=== PATIENT | male | born 1985 | race Asian ===

== ENCOUNTER 2016-10-11 21:54 | Inpatient (IN) | payer SELFPAY ==
[2016-10-11 22:53] VITALS: BMI 24.7
[2016-10-11] MEDS ORDERED: METHADONE HCL 10 MG TABLET (FOR DETOX USE ONLY) PO ONE ×2 (23:00→23:23)
--- NOTE | 2016-10-11 23:07 | HP ---
COWS - Scale Resting Pulse: 0= [place] 80 or Below Sweatin= Chills/Flushing Restless Observation: 3= Extraneous Movement Pupil Size: 2= Moderately Dilated Bone or Joint Aches: 2= Severe Diffuse Aches Runny Nose/ Eye Tearin= Runny Nose/Eyes GI Upset > 30mins: 3= Vomiting/Diarrhea Tremor Observation: 2= Slight Tremor Visible Yawning Observation: 2= >3x During Session Anxiety or Irritability: 2=Irritable/Anxious Goose Flesh Skin: 0=Smooth Skin COWS Score: 19 CIWA Score - CIWA Score Nausea/Vomitin Muscle Tremors: 3 Anxiety: 3 Agitation: 3 Paroxysmal Sweats: 2 Orientation: 0-Oriented Tacttile Disturbances: 2-Mild Itch/Numbness/Burn Auditory Disturbances: 2-Mild Harshness/Frighten Visual Disturbances: 2-Mild Sensitivity Headache: 2-Mild CIWA-Ar Total Score: 22 Admission ROS BHS - HPI Chief Complaint: i need help to stop using heroin,cocaine and xanax Allergies/Adverse Reactions: Allergies Allergy/AdvReac Type Severity Reaction Status Date / Time No Known Drug Allergies Allergy Verified 10/11/16 22:53 History of Present Illness: this 31 years old male with heroin,cocaine and xanax dependence,withdrawal symptom,last detox 2013 not completed low back pain no significant period of sobriety - Ebola screening Have you traveled outside of the country in the last 21 days: No (N) Have you had contact with anyone from an Ebola affected area: No Have you been sick,other than usual withdrawal symptoms: No Do you have a fever: No - Review of Systems Constitutional: Chills, Diaphoresis, Loss of Appetite, Malaise, Night Sweats, Changes in sleep EENT: reports: Tearing, Nose Congestion Respiratory: reports: No Symptoms reported Cardiac: reports: No Symptoms Reported GI: reports: Diarrhea, Nausea, Poor Appetite, Vomiting : reports: No Symptoms Reported Musculoskeletal: reports: Back Pain, Joint Pain, Muscle Pain, Joint Stiffness Integumentary: reports: Dryness Neuro: reports: Headache, Tremors Endocrine: reports: No Symptoms Reported Hematology: reports: No Symptoms Reported Psychiatric: reports: No Sypmtoms Reported, Judgement Intact, Mood/Affect Appropiate, Orientated x3 Patient History - Patient Medical History Hx Anemia: No Hx Asthma: No Hx Chronic Obstructive Pulmonary Disease (COPD): No Hx Cancer: No Hx Cardiac Disorders: No Hx Congestive Heart Failure: No Hx Hypertension: No Hx Hypercholesterolemia: No Hx Pacemaker: No HX Cerebrovascular Accident: No Hx Seizures: No Hx Dementia: No Hx Diabetes: No Hx Gastrointestinal Disorders: No Hx Liver Disease: No Hx Genitourinary Disorders: No Hx Sexually Transmitted Disorders: No Hx Renal Disease (ESRD): No Hx Thyroid Disease: No Hx Human Immunodeficiency Virus (HIV): No (last 2015) Hx Hepatitis C: No Hx Depression: No Hx Suicide Attempt: No Hx Bipolar Disorder: No Hx Schizophrenia: No Other Medical History: no suicidal,no homicidal - Patient Surgical History Past Surgical History: No Hx Neurologic Surgery: No Hx Cataract Extraction: No Hx Cardiac Surgery: No Hx Lung Surgery: No Hx Breast Surgery: No Hx Breast Biopsy: No Hx Abdominal Surgery: No Hx Appendectomy: No Hx Cholecystectomy: No Hx Genitourinary Surgery: No Hx Orthopedic Surgery: No Anesthesia Reaction: No - PPD History Previous Implant?: Yes Documented Results: Negative w/o proof Implanted On Prior [facility] Admission?: Yes Date: 04/10/13 PPD to be Administered?: Yes - Smoking Cessation Smoking history: Never smoked Have you smoked in the past 12 months: No Hx Chewing Tobacco Use: No - Substance & Tx. History Hx Alcohol Use: No Hx Substance Use: Yes Substance Use Type: Cocaine, Heroin, Tranquilizers Hx Substance Use Treatment: Yes ([facility] [id number]) - Substances Abused Heroin Route: Inhalation Frequency: Daily Amount used: 25 bags Age of first use: 31 Date of Last Use: 10/11/16 Cocaine Route: Inhalation Frequency: 3-6 times per week Amount used: 80$ Age of first use: 25 Date of Last Use: 10/11/16 Alprazolam (Xanax) Route: Oral Frequency: 1-2 times per week Amount used: 4 to 6 mgs Age of first use: 25 Date of Last Use: 10/08/16 Family Disease History - Family Disease History Family Disease History: CA: Mother (METASTATIC OF UNKNOWN ORIGIN) Admission Physical Exam BHS - Vital Signs Vital Signs: Vital Signs - 24 hr 10/11/16 22:51 Temperature 97.1 F L Pulse Rate 71 Respiratory 20 Rate Blood Pressure 145/80 - Physical General Appearance: Yes: Moderate Distress, Tremorous, Irritable, Sweating, Anxious HEENTM: Yes: Hearing grossly Normal, Normal ENT Inspection, BUDDY, Pharynx Normal Respiratory: Yes: Lungs Clear, Normal Breath Sounds, No Respiratory Distress Neck: Yes: Within Normal Limits, Supple, Trachea in good position Breast: Yes: Within Normal Limits Cardiology: Yes: Within Normal Limits, Regular Rhythm, Regular Rate, S1, S2 Abdominal: Yes: Within Normal Limits, Normal Bowel Sounds, Non Tender, Flat, Soft Genitourinary: Yes: Within Normal Limits Back: Yes: Muscle Spasm Musculoskeletal: Yes: full range of Motion, Back pain, Muscle Pain Extremities: Yes: Tremors Neurological: Yes: early childhood teacher II-XII NML intact, Fully Oriented, Alert, Motor Strength 5/5 Integumentary: Yes: Dry Lymphatic: Yes: Within Normal Limits - Diagnostic (1) Opioid dependence with withdrawal Current Visit: Yes Status: Acute (2) Cocaine dependence Current Visit: Yes Status: Acute (3) Uncomplicated sedative, hypnotic or anxiolytic withdrawal Current Visit: Yes Status: Acute (4) Low back pain Current Visit: Yes Status: Acute Cleared for Admission [facility] - Detox or Rehab [facility] Level of Care: Medically Managed Detox Regimen/Protocol: Methadone [facility] Breath Alcohol Content Breath Alcohol Content: 0 Urine Drug Screen - Results Drug Screen Negative: No Urine Drug Screen Results: MAITE-Cocaine, OPI-Opiates
[2016-10-11] MEDS ORDERED: MENTHOL/PHENOL 1 EACH UD MM PRN (23:18)
[2016-10-11] MEDS ORDERED: guaiFENesin/D-METHORPHAN HB 10 ML UNIT-DOSE CUPS PO PRN (23:18)
[2016-10-11] MEDS ORDERED: MAG HYDROX/AL HYDROX/SIMETH 30 ML UNIT-DOSE CUP PO PRN (23:18)
[2016-10-11] MEDS ORDERED: P-EPHED 60MG/TRIPROLIDI 2.5MG TABLET PO PRN (23:18)
[2016-10-11] MEDS ORDERED: MAGNESIUM CITRATE 300 ML BOTTLE PO PRN (23:18)
[2016-10-11] MEDS ORDERED: LOPERAMIDE HCL 2 MG CAPSULE PO PRN (23:18)
[2016-10-11] MEDS ORDERED: MAGNESIUM HYDROX 2400MG/30ML ORAL SUSPENSION 30 ML CUP PO PRN (23:18)
[2016-10-11] MEDS: diazePAM 5 MG TABLET PO PRN (23:44)
[2016-10-12] MEDS: diazePAM 5 MG TABLET PO PRN ×4 (05:56→20:49)
[2016-10-12] MEDS: cloNIDine HCL 0.1 MG TABLET PO SCH ×2 (10:00→22:51)
[2016-10-12] MEDS ORDERED: METHADONE HCL 10 MG TABLET (FOR DETOX USE ONLY) PO ONE (10:00)
[2016-10-12] MEDS: PRENATAL VITAMINS W/ FOLIC ACID TABLET (FP) PO SCH (10:00)
--- NOTE | 2016-10-12 10:06 | EKG ---
Test Reason : Blood Pressure : / mmHG Vent. Rate : 059 BPM Atrial Rate : 059 BPM P-R Int : 176 ms QRS Dur : 094 ms QT Int : 464 ms P-R-T Axes : 064 079 050 degrees QTc Int : 459 ms SINUS BRADYCARDIA WITH SINUS ARRHYTHMIA NO PREVIOUS ECGS AVAILABLE Confirmed by EMY DONAHUE MD ([id number]) on 10/12/2016 10:05:55 AM Referred By: Confirmed By:EMY DONAHUE MD
[2016-10-12 10:25] LABS: MCH 30.7 pg (25.7-33.7); MCHC 34.4 g/dl (32.0-35.9); MEAN CELL VOLUME 89.1 fl (80-96); MEAN PLT VOLUME 8.1 fl (7.5-11.1); PLATELET COUNT 205 K/MM3 (134-434); RDW 13.4 % (11.9-15.9); WHITE BLOOD COUNT 5.4 K/mm3 (4.0-10.0)
[2016-10-12 11:15] LABS: ALBUMIN 3.3 g/dl (3.4-5.0); ALK PHOS 51 U/L (45-117); ANION GAP 7 (8-16); BILIRUBIN,TOTAL 0.2 mg/dL (0.2-1.0); CALCIUM 8.4 mg/dL (8.5-10.1); CO2 28 mmol/L (21-32); COCKROFT - GAULT 161.37; CREATININE 0.8 mg/dL (0.7-1.3); GLUCOSE,RANDOM 80 mg/dL (74-106); SGOT/AST 20 U/L (15-37); SGPT/ALT 26 U/L (12-78); TOT PROT 6.4 g/dl (6.4-8.2)
--- NOTE | 2016-10-12 13:59 | PN ---
S COWS - Scale Resting Pulse: 0= [place] 80 or Below Sweatin=Flushed/Facial Moisture Restless Observation: 1= Difficult to Sit Still Pupil Size: 0= Normal to Room Light Bone or Joint Aches: 2= Severe Diffuse Aches Runny Nose/ Eye Tearin= Nasal Congestion GI Upset > 30mins: 2= Nausea/Diarrhea Tremor Observation of Outstretched Hands: 2= Slight Tremor Visible Yawning Observation: 0= None Anxiety or Irritability: 2=Irritable/Anxious Goose Flesh Skin: 3=Piloerection COWS Score: 15 [facility] Progress Note (SOAP) Subjective: restlessness, tremors, sweats, pain and abdominal cramping Objective: 10/12/16 13:58 Vital Signs - 8 hr 10/12/16 10/12/16 06:47 09:59 Temperature 96.5 F L 98.5 F Pulse Rate 50 L 72 Respiratory 16 18 Rate Blood Pressure 122/77 149/84 Laboratory Last Values WBC 5.4 K/mm3 (4.0-10.0) D 10/12/16 07:50 RBC 4.28 M/mm3 (4.00-5.60) 10/12/16 07:50 Hgb 13.1 GM/dL (11.7-16.9) 10/12/16 07:50 Hct 38.1 % (35.4-49) 10/12/16 07:50 MCV 89.1 fl (80-96) 10/12/16 07:50 MCHC 34.4 g/dl (32.0-35.9) 10/12/16 07:50 RDW 13.4 % (11.9-15.9) 10/12/16 07:50 Plt Count 205 K/MM3 (134-434) 10/12/16 07:50 MPV 8.1 fl (7.5-11.1) 10/12/16 07:50 Sodium 140 mmol/L (136-145) 10/12/16 07:50 Potassium 4.1 mmol/L (3.5-5.1) 10/12/16 07:50 Chloride 105 mmol/L (98-107) 10/12/16 07:50 Carbon Dioxide 28 mmol/L (21-32) 10/12/16 07:50 Anion Gap 7 (8-16) L 10/12/16 07:50 BUN 22 mg/dL (7-18) H D 10/12/16 07:50 Creatinine 0.8 mg/dL (0.7-1.3) 10/12/16 07:50 Creat Clearance w eGFR > 60 (>60) 10/12/16 07:50 Random Glucose 80 mg/dL (74-106) 10/12/16 07:50 Calcium 8.4 mg/dL (8.5-10.1) L 10/12/16 07:50 Total Bilirubin 0.2 mg/dL (0.2-1.0) D 10/12/16 07:50 AST 20 U/L (15-37) D 10/12/16 07:50 ALT 26 U/L (12-78) D 10/12/16 07:50 Alkaline Phosphatase 51 U/L (45-117) D 10/12/16 07:50 Total Protein 6.4 g/dl (6.4-8.2) 10/12/16 07:50 Albumin 3.3 g/dl (3.4-5.0) L 10/12/16 07:50 RPR Titer Nonreactive (NONREACTIVE) 10/12/16 07:50 labs noted Assessment: 10/12/16 13:58 withdrawal sx Plan: continue detox
[2016-10-12] MEDS: IBUPROFEN 400 MG TABLET (FP) PO PRN (16:42)
[2016-10-12 19:17] LABS: URINE APPEARANCE SLCLOUDY; URINE BILIRUBIN NEGATIVE (NEGATIVE); URINE BLOOD NEGATIVE (NEGATIVE); URINE COLOR YELLOW; URINE GLUCOSE (UA) NEGATIVE (NEGATIVE); URINE KETONE NEGATIVE (NEGATIVE); URINE LEUK ESTERASE NEGATIVE (NEGATIVE); URINE NITRITE NEGATIVE (NEGATIVE); URINE PROTEIN NEGATIVE (NEGATIVE); URINE UROBILINOGEN NEGATIVE E.U./dl (0.2-1.0)
[2016-10-12] MEDS: CYCLOBENZAPRINE HCL 10 MG TABLET (FP) PO PRN (20:49)
[2016-10-12] MEDS: THIAMINE HCL 100 MG TABLET (FP) PO SCH (22:51)
[2016-10-12] MEDS: diphenhydrAMINE HCL 50 MG CAPSULE PO PRN (22:53)
[2016-10-13] MEDS: IBUPROFEN 400 MG TABLET (FP) PO PRN ×2 (05:51→20:28)
[2016-10-13] MEDS: diazePAM 5 MG TABLET PO PRN ×4 (05:51→22:37)
[2016-10-13] MEDS ORDERED: METHADONE HCL 5 MG TABLET (FOR DETOX USE ONLY) PO ONE (10:00)
[2016-10-13] MEDS: cloNIDine HCL 0.1 MG TABLET PO SCH ×2 (10:50→22:35)
[2016-10-13] MEDS: PRENATAL VITAMINS W/ FOLIC ACID TABLET (FP) PO SCH (10:50)
[2016-10-13] MEDS: ACETAMINOPHEN 325 MG TABLET (FP) PO PRN ×2 (10:52→18:11)
[2016-10-13] MEDS: CYCLOBENZAPRINE HCL 10 MG TABLET (FP) PO PRN ×2 (11:13→18:11)
--- NOTE | 2016-10-13 16:05 | PN ---
BHS COWS - Scale Resting Pulse: 1= [place] 81-100 Sweatin= Chills/Flushing Restless Observation: 3= Extraneous Movement Pupil Size: 0= Normal to Room Light Bone or Joint Aches: 2= Severe Diffuse Aches Runny Nose/ Eye Tearin= Runny Nose/Eyes GI Upset > 30mins: 1= Stomach Cramp Tremor Observation of Outstretched Hands: 0= None Yawning Observation: 1= 1-2x During Session Anxiety or Irritability: 2=Irritable/Anxious Goose Flesh Skin: 0=Smooth Skin COWS Score: 13 BHS Progress Note (SOAP) Subjective: Back pain (wants lidocaine patch, flexeril not adequate), sweats, anxious, c/o constipation (no bm x 3 days) Objective: 10/13/16 16:04 Last Vital Signs Temp Pulse Resp BP Pulse Ox 96.9 F L 85 18 132/84 10/13/16 09:14 10/13/16 09:14 10/13/16 09:14 10/13/16 09:14 Laboratory Tests 10/12/16 10/12/16 10/12/16 07:50 07:50 07:50 WBC 5.4 D RBC 4.28 Hgb 13.1 Hct 38.1 MCV 89.1 MCHC 34.4 RDW 13.4 Plt Count 205 MPV 8.1 Sodium 140 Potassium 4.1 Chloride 105 Carbon Dioxide 28 Anion Gap 7 L BUN 22 H D Creatinine 0.8 Creat Clearance w eGFR > 60 Random Glucose 80 Calcium 8.4 L Total Bilirubin 0.2 D AST 20 D ALT 26 D Alkaline Phosphatase 51 D Total Protein 6.4 Albumin 3.3 L Urine Color Urine Appearance Urine pH Ur Specific [place] Urine Protein Urine Glucose (UA) Urine Ketones Urine Blood Urine Nitrite Urine Bilirubin Urine Urobilinogen Ur Leukocyte Esterase RPR Titer Nonreactive 10/12/16 11:18 WBC RBC Hgb Hct MCV MCHC RDW Plt Count MPV Sodium Potassium Chloride Carbon Dioxide Anion Gap BUN Creatinine Creat Clearance w eGFR Random Glucose Calcium Total Bilirubin AST ALT Alkaline Phosphatase Total Protein Albumin Urine Color Yellow Urine Appearance Slcloudy Urine pH 5.0 D Ur Specific [place] 1.023 Urine Protein Negative Urine Glucose (UA) Negative Urine Ketones Negative Urine Blood Negative Urine Nitrite Negative Urine Bilirubin Negative Urine Urobilinogen Negative Ur Leukocyte Esterase Negative RPR Titer Labs noted Assessment: 10/13/16 16:04 Withdrawal symptoms c/o constipation Plan: Continue detox, lidocaine patch for back pain Acute constipation: dulcolax 10mg PO x 1 dose, encouraged to drink lots of water
[2016-10-13] MEDS ORDERED: BISACODYL 5 MG TABLET.DR (FP) PO ONE (16:07)
[2016-10-13] MEDS: hydrOXYzine PAMOATE 50 MG CAPSULE (FP) PO PRN (20:29)
[2016-10-13] MEDS: THIAMINE HCL 100 MG TABLET (FP) PO SCH (22:35)
[2016-10-13] MEDS: diphenhydrAMINE HCL 50 MG CAPSULE PO PRN (22:36)
[2016-10-14] MEDS: CYCLOBENZAPRINE HCL 10 MG TABLET (FP) PO PRN (04:00)
[2016-10-14] MEDS: diazePAM 5 MG TABLET PO PRN ×4 (04:00→19:41)
[2016-10-14] MEDS ORDERED: METHADONE HCL 5 MG TABLET (FOR DETOX USE ONLY) PO ONE (10:00)
[2016-10-14] MEDS: PRENATAL VITAMINS W/ FOLIC ACID TABLET (FP) PO SCH (10:41)
[2016-10-14] MEDS: LIDOCAINE 5% TOPICAL PATCH TP SCH (10:42)
[2016-10-14] MEDS: cloNIDine HCL 0.1 MG TABLET PO SCH ×2 (10:42→22:30)
--- NOTE | 2016-10-14 12:10 | PN ---
BHS Progress Note (SOAP) Subjective: Sweating,interrupted sleep,restless. Objective: 10/14/16 12:09 Vital Signs - 8 hr 10/14/16 10/14/16 06:18 09:50 Temperature 96.4 F L 95.7 F L Pulse Rate 78 81 Respiratory 18 18 Rate Blood Pressure 140/73 137/84 Laboratory Last Values WBC 5.4 K/mm3 (4.0-10.0) D 10/12/16 07:50 RBC 4.28 M/mm3 (4.00-5.60) 10/12/16 07:50 Hgb 13.1 GM/dL (11.7-16.9) 10/12/16 07:50 Hct 38.1 % (35.4-49) 10/12/16 07:50 MCV 89.1 fl (80-96) 10/12/16 07:50 MCHC 34.4 g/dl (32.0-35.9) 10/12/16 07:50 RDW 13.4 % (11.9-15.9) 10/12/16 07:50 Plt Count 205 K/MM3 (134-434) 10/12/16 07:50 MPV 8.1 fl (7.5-11.1) 10/12/16 07:50 Sodium 140 mmol/L (136-145) 10/12/16 07:50 Potassium 4.1 mmol/L (3.5-5.1) 10/12/16 07:50 Chloride 105 mmol/L (98-107) 10/12/16 07:50 Carbon Dioxide 28 mmol/L (21-32) 10/12/16 07:50 Anion Gap 7 (8-16) L 10/12/16 07:50 BUN 22 mg/dL (7-18) H D 10/12/16 07:50 Creatinine 0.8 mg/dL (0.7-1.3) 10/12/16 07:50 Creat Clearance w eGFR > 60 (>60) 10/12/16 07:50 Random Glucose 80 mg/dL (74-106) 10/12/16 07:50 Calcium 8.4 mg/dL (8.5-10.1) L 10/12/16 07:50 Total Bilirubin 0.2 mg/dL (0.2-1.0) D 10/12/16 07:50 AST 20 U/L (15-37) D 10/12/16 07:50 ALT 26 U/L (12-78) D 10/12/16 07:50 Alkaline Phosphatase 51 U/L (45-117) D 10/12/16 07:50 Total Protein 6.4 g/dl (6.4-8.2) 10/12/16 07:50 Albumin 3.3 g/dl (3.4-5.0) L 10/12/16 07:50 Urine Color Yellow 10/12/16 11:18 Urine Appearance Slcloudy 10/12/16 11:18 Urine pH 5.0 (5.0-8.0) D 10/12/16 11:18 Ur Specific [place] 1.023 (1.001-1.035) 10/12/16 11:18 Urine Protein Negative (NEGATIVE) 10/12/16 11:18 Urine Glucose (UA) Negative (NEGATIVE) 10/12/16 11:18 Urine Ketones Negative (NEGATIVE) 10/12/16 11:18 Urine Blood Negative (NEGATIVE) 10/12/16 11:18 Urine Nitrite Negative (NEGATIVE) 10/12/16 11:18 Urine Bilirubin Negative (NEGATIVE) 10/12/16 11:18 Urine Urobilinogen Negative E.U./dl (0.2-1.0) 10/12/16 11:18 Ur Leukocyte Esterase Negative (NEGATIVE) 10/12/16 11:18 RPR Titer Nonreactive (NONREACTIVE) 10/12/16 07:50 labs noted Assessment: 10/14/16 12:10 Withdrawal sx. Plan: Continue detox
[2016-10-14] MEDS: ONDANSETRON *ODT* 4 MG TABLET SL PRN (13:01)
[2016-10-14] MEDS: TRIMETHOBENZAMIDE HCL 200MG/2ML INJ IM PRN ×2 (13:52→20:23)
[2016-10-14] MEDS: ACETAMINOPHEN 325 MG TABLET (FP) PO PRN ×2 (15:25→21:30)
[2016-10-14] MEDS: IBUPROFEN 400 MG TABLET (FP) PO PRN (17:16)
[2016-10-14] MEDS: hydrOXYzine PAMOATE 50 MG CAPSULE (FP) PO PRN (17:16)
[2016-10-14] MEDS: THIAMINE HCL 100 MG TABLET (FP) PO SCH (22:30)
[2016-10-14] MEDS: diphenhydrAMINE HCL 50 MG CAPSULE PO PRN (22:30)
[2016-10-15] MEDS: TRIMETHOBENZAMIDE HCL 200MG/2ML INJ IM PRN (03:59)
[2016-10-15] MEDS: IBUPROFEN 400 MG TABLET (FP) PO PRN (06:09)
[2016-10-15] MEDS: CYCLOBENZAPRINE HCL 10 MG TABLET (FP) PO PRN ×2 (06:09→21:45)
[2016-10-15] MEDS: hydrOXYzine PAMOATE 50 MG CAPSULE (FP) PO PRN ×3 (06:09→21:47)
[2016-10-15] MEDS: cloNIDine HCL 0.1 MG TABLET PO SCH ×3 (06:27→21:45)
--- NOTE | 2016-10-15 09:46 | PN ---
BHS Progress Note (SOAP) Subjective: Sweating,interrupted sleep,restless Objective: 10/15/16 09:45 Vital Signs - 8 hr 10/15/16 10/15/16 06:22 09:23 Temperature 98.9 F Pulse Rate 94 H 84 Respiratory 18 20 Rate Blood Pressure 163/107 118/68 Laboratory Last Values WBC 5.4 K/mm3 (4.0-10.0) D 10/12/16 07:50 RBC 4.28 M/mm3 (4.00-5.60) 10/12/16 07:50 Hgb 13.1 GM/dL (11.7-16.9) 10/12/16 07:50 Hct 38.1 % (35.4-49) 10/12/16 07:50 MCV 89.1 fl (80-96) 10/12/16 07:50 MCHC 34.4 g/dl (32.0-35.9) 10/12/16 07:50 RDW 13.4 % (11.9-15.9) 10/12/16 07:50 Plt Count 205 K/MM3 (134-434) 10/12/16 07:50 MPV 8.1 fl (7.5-11.1) 10/12/16 07:50 Sodium 140 mmol/L (136-145) 10/12/16 07:50 Potassium 4.1 mmol/L (3.5-5.1) 10/12/16 07:50 Chloride 105 mmol/L (98-107) 10/12/16 07:50 Carbon Dioxide 28 mmol/L (21-32) 10/12/16 07:50 Anion Gap 7 (8-16) L 10/12/16 07:50 BUN 22 mg/dL (7-18) H D 10/12/16 07:50 Creatinine 0.8 mg/dL (0.7-1.3) 10/12/16 07:50 Creat Clearance w eGFR > 60 (>60) 10/12/16 07:50 Random Glucose 80 mg/dL (74-106) 10/12/16 07:50 Calcium 8.4 mg/dL (8.5-10.1) L 10/12/16 07:50 Total Bilirubin 0.2 mg/dL (0.2-1.0) D 10/12/16 07:50 AST 20 U/L (15-37) D 10/12/16 07:50 ALT 26 U/L (12-78) D 10/12/16 07:50 Alkaline Phosphatase 51 U/L (45-117) D 10/12/16 07:50 Total Protein 6.4 g/dl (6.4-8.2) 10/12/16 07:50 Albumin 3.3 g/dl (3.4-5.0) L 10/12/16 07:50 Urine Color Yellow 10/12/16 11:18 Urine Appearance Slcloudy 10/12/16 11:18 Urine pH 5.0 (5.0-8.0) D 10/12/16 11:18 Ur Specific [place] 1.023 (1.001-1.035) 10/12/16 11:18 Urine Protein Negative (NEGATIVE) 10/12/16 11:18 Urine Glucose (UA) Negative (NEGATIVE) 10/12/16 11:18 Urine Ketones Negative (NEGATIVE) 10/12/16 11:18 Urine Blood Negative (NEGATIVE) 10/12/16 11:18 Urine Nitrite Negative (NEGATIVE) 10/12/16 11:18 Urine Bilirubin Negative (NEGATIVE) 10/12/16 11:18 Urine Urobilinogen Negative E.U./dl (0.2-1.0) 10/12/16 11:18 Ur Leukocyte Esterase Negative (NEGATIVE) 10/12/16 11:18 RPR Titer Nonreactive (NONREACTIVE) 10/12/16 07:50 labs noted Assessment: 10/15/16 09:46 Withdrawal sx Plan: Continue detox
[2016-10-15] MEDS ORDERED: METHADONE HCL 10 MG TABLET (FOR DETOX USE ONLY) PO ONE (10:00)
[2016-10-15] MEDS: ONDANSETRON *ODT* 4 MG TABLET SL PRN (11:59)
[2016-10-15] MEDS: PRENATAL VITAMINS W/ FOLIC ACID TABLET (FP) PO SCH (12:12)
[2016-10-15] MEDS: LIDOCAINE 5% TOPICAL PATCH TP SCH (12:12)
[2016-10-15] MEDS: THIAMINE HCL 100 MG TABLET (FP) PO SCH (21:44)
[2016-10-15] MEDS: diphenhydrAMINE HCL 50 MG CAPSULE PO PRN (22:36)
[2016-10-16] MEDS: CYCLOBENZAPRINE HCL 10 MG TABLET (FP) PO PRN (05:57)
[2016-10-16] MEDS: hydrOXYzine PAMOATE 50 MG CAPSULE (FP) PO PRN (05:59)
[2016-10-16] MEDS ORDERED: METHADONE HCL 5 MG TABLET (FOR DETOX USE ONLY) PO ONE (06:00)
[2016-10-16] MEDS: LIDOCAINE 5% TOPICAL PATCH TP SCH (09:27)
[2016-10-16] MEDS: PRENATAL VITAMINS W/ FOLIC ACID TABLET (FP) PO SCH (09:27)
[2016-10-16] MEDS: cloNIDine HCL 0.1 MG TABLET PO SCH (09:27)
[2016-10-16 09:48] VITALS: BP 118/75; PULSE 103; TEMP 95.4
--- NOTE | 2016-10-16 13:03 | DS ---
[facility] Detox Discharge Summary Admission Date: 10/11/16 Discharge Date: 10/16/16 - History Present History: Cocaine Dependence, Opioid Dependence, Sedative Dependence Additional Comments: ADVISED PATIENT TO FOLLOW-UP WITH [facility] DR[facility] AFTER DISCHARGE FROM DETOX FOR GENERAL MEDICAL ASSESSMENT AND FOR ABNORMAL ADMISSION LAB VALUES. - Physical Exam Results Vital Signs: Vital Signs Temperature 95.4 F L 10/16/16 09:48 Pulse Rate 103 H 10/16/16 09:48 Respiratory Rate 15 10/16/16 09:48 Blood Pressure 118/75 10/16/16 09:48 O2 Sat by Pulse Oximetry (%) Pertinent Admission Physical Exam Findings: WITHDRAWAL SYMPTOMS. Laboratory Last Values WBC 5.4 K/mm3 (4.0-10.0) D 10/12/16 07:50 RBC 4.28 M/mm3 (4.00-5.60) 10/12/16 07:50 Hgb 13.1 GM/dL (11.7-16.9) 10/12/16 07:50 Hct 38.1 % (35.4-49) 10/12/16 07:50 MCV 89.1 fl (80-96) 10/12/16 07:50 MCHC 34.4 g/dl (32.0-35.9) 10/12/16 07:50 RDW 13.4 % (11.9-15.9) 10/12/16 07:50 Plt Count 205 K/MM3 (134-434) 10/12/16 07:50 MPV 8.1 fl (7.5-11.1) 10/12/16 07:50 Sodium 140 mmol/L (136-145) 10/12/16 07:50 Potassium 4.1 mmol/L (3.5-5.1) 10/12/16 07:50 Chloride 105 mmol/L (98-107) 10/12/16 07:50 Carbon Dioxide 28 mmol/L (21-32) 10/12/16 07:50 Anion Gap 7 (8-16) L 10/12/16 07:50 BUN 22 mg/dL (7-18) H D 10/12/16 07:50 Creatinine 0.8 mg/dL (0.7-1.3) 10/12/16 07:50 Creat Clearance w eGFR > 60 (>60) 10/12/16 07:50 Random Glucose 80 mg/dL (74-106) 10/12/16 07:50 Calcium 8.4 mg/dL (8.5-10.1) L 10/12/16 07:50 Total Bilirubin 0.2 mg/dL (0.2-1.0) D 10/12/16 07:50 AST 20 U/L (15-37) D 10/12/16 07:50 ALT 26 U/L (12-78) D 10/12/16 07:50 Alkaline Phosphatase 51 U/L (45-117) D 10/12/16 07:50 Total Protein 6.4 g/dl (6.4-8.2) 10/12/16 07:50 Albumin 3.3 g/dl (3.4-5.0) L 10/12/16 07:50 Urine Color Yellow 10/12/16 11:18 Urine Appearance Slcloudy 10/12/16 11:18 Urine pH 5.0 (5.0-8.0) D 10/12/16 11:18 Ur Specific [place] 1.023 (1.001-1.035) 10/12/16 11:18 Urine Protein Negative (NEGATIVE) 10/12/16 11:18 Urine Glucose (UA) Negative (NEGATIVE) 10/12/16 11:18 Urine Ketones Negative (NEGATIVE) 10/12/16 11:18 Urine Blood Negative (NEGATIVE) 10/12/16 11:18 Urine Nitrite Negative (NEGATIVE) 10/12/16 11:18 Urine Bilirubin Negative (NEGATIVE) 10/12/16 11:18 Urine Urobilinogen Negative E.U./dl (0.2-1.0) 10/12/16 11:18 Ur Leukocyte Esterase Negative (NEGATIVE) 10/12/16 11:18 RPR Titer Nonreactive (NONREACTIVE) 10/12/16 07:50 LABS NOTED. - Treatment Hospital Course: Detox Protocol Followed, Detoxed Safely, Responded well, Discharged Condition Good Patient has Accepted a Rehab Referral to: NO - PATIENT ELECTING TO PURSUE OUTPATIENT SUBOXONE TREATMENT. - Medication Discharge Medications: Ambulatory Orders NK [No Known Home Medication] 10/11/16 - Diagnosis (1) Low back pain Current Visit: Yes Status: Acute (2) Opioid dependence with withdrawal Current Visit: Yes Status: Acute (3) Uncomplicated sedative, hypnotic or anxiolytic withdrawal Current Visit: Yes Status: Acute (4) Cocaine dependence, uncomplicated Current Visit: Yes Status: Acute - AMA Did Patient Leave Against Medical Advice: No
== END 2016-10-16 09:35 | disposition home or self-care (01) | DRG 773 ==
LOC: YASAS 21:54 → Y3N 22:57
PROVIDERS: ADMIT Internal Medicine; ATTEND Internal Medicine
PROC: HZ2ZZZZ Detoxification Services for Substance Abuse Treatment (ICD-10-PCS; principal; 2016-10-11)
DX: F11.23 Opioid dependence with withdrawal (principal); F13.230 Sedative, hypnotic or anxiolytic dependence with withdrawal, uncomplicated; F14.20 Cocaine dependence, uncomplicated; M54.5 Low back pain; K59.00 Constipation, unspecified
CPT/HCPCS: 36415; 80053; 81003; 85027; 86593; 93005; 93010

== ENCOUNTER 2017-03-02 17:58 | Inpatient (IN) | payer OTHER ==
[2017-03-02 18:25] VITALS: BMI 24.4
--- NOTE | 2017-03-02 18:57 | HP ---
COWS - Scale Resting Pulse: 2= [place] 101-120 Sweatin=Flushed/Facial Moisture Restless Observation: 1= Difficult to Sit Still Pupil Size: 2= Moderately Dilated Bone or Joint Aches: 2= Severe Diffuse Aches Runny Nose/ Eye Tearin= Runny Nose/Eyes GI Upset > 30mins: 2= Nausea/Diarrhea Tremor Observation: 2= Slight Tremor Visible Yawning Observation: 1= 1-2x During Session Anxiety or Irritability: 2=Irritable/Anxious Goose Flesh Skin: 0=Smooth Skin COWS Score: 18 CIWA Score - CIWA Score Nausea/Vomitin Muscle Tremors: 4-Moderate,w/Arms Extend Anxiety: 4-Mod. Anxious/Guarded Agitation: 4-Moderately Restless Paroxysmal Sweats: 3 Orientation: 2-Disoriented Date<2 days Tacttile Disturbances: 0-None Auditory Disturbances: 0-None Visual Disturbances: 0-None Headache: 0-None Present CIWA-Ar Total Score: 19 Admission ROS BHS - HPI Chief Complaint: Withdrawal sx Allergies/Adverse Reactions: Allergies Allergy/AdvReac Type Severity Reaction Status Date / Time No Known Drug Allergies Allergy Verified 10/11/16 22:53 History of Present Illness: 31 y/o man with a long hx. of heroin & alcohol dependence is admitted for detox.Pt. has been in previous detox,denies being drug free. Exam Limitations: No Limitations - Ebola screening Have you traveled outside of the country in the last 21 days: No Have you had contact with anyone from an Ebola affected area: No Have you been sick,other than usual withdrawal symptoms: No Do you have a fever: No - Review of Systems Constitutional: Diaphoresis EENT: reports: No Symptoms Reported Respiratory: reports: No Symptoms reported Cardiac: reports: No Symptoms Reported GI: reports: Nausea, Abdominal cramping : reports: No Symptoms Reported Musculoskeletal: reports: Joint Pain Integumentary: reports: Sweating Neuro: reports: Tremors Endocrine: reports: No Symptoms Reported Hematology: reports: No Symptoms Reported Psychiatric: reports: No Sypmtoms Reported Other Systems: Reviewed and Negative Patient History - Patient Medical History Hx Anemia: No Hx Asthma: No Hx Chronic Obstructive Pulmonary Disease (COPD): No Hx Cancer: No Hx Cardiac Disorders: No Hx Congestive Heart Failure: No Hx Hypertension: No Hx Hypercholesterolemia: No Hx Pacemaker: No HX Cerebrovascular Accident: No Hx Seizures: No Hx Dementia: No Hx Diabetes: No Hx Gastrointestinal Disorders: No Hx Liver Disease: No Hx Genitourinary Disorders: No Hx Sexually Transmitted Disorders: No Hx Renal Disease (ESRD): No Hx Thyroid Disease: No Hx Human Immunodeficiency Virus (HIV): No Hx Hepatitis C: No Hx Depression: No Hx Suicide Attempt: No Hx Bipolar Disorder: No Hx Schizophrenia: No - Patient Surgical History Past Surgical History: No Hx Neurologic Surgery: No Hx Cataract Extraction: No Hx Cardiac Surgery: No Hx Lung Surgery: No Hx Breast Surgery: No Hx Breast Biopsy: No Hx Abdominal Surgery: No Hx Appendectomy: No Hx Cholecystectomy: No Hx Genitourinary Surgery: No Hx Section: No Hx Orthopedic Surgery: No Anesthesia Reaction: No - PPD History Previous Implant?: Yes Documented Results: Negative w/proof Date: 10/13/16 Results: 0 mm PPD to be Administered?: No - Smoking Cessation Smoking history: Current every day smoker Have you smoked in the past 12 months: Yes Aproximately how many cigarettes per day: 2 Hx Chewing Tobacco Use: No Initiated information on smoking cessation: Yes 'Breaking Loose' booklet given: 03/02/17 - Substance & Tx. History Hx Alcohol Use: Yes Hx Substance Use: Yes Substance Use Type: Alcohol, Cocaine, Heroin, Tranquilizers Hx Substance Use Treatment: Yes (Detox, IOP) - Substances Abused Alcohol Route: Oral Frequency: Daily Amount used: Beer 1(6 pack), Rum 1/2 pint Age of first use: 15 Date of Last Use: 03/01/17 Alprazolam (Xanax) Route: Oral Frequency: Daily Amount used: 4mg Age of first use: 15 Date of Last Use: 03/01/17 Heroin Route: Inhalation Frequency: Daily Amount used: 10 bags Age of first use: 30 Date of Last Use: 03/02/17 Cocaine Route: Inhalation Frequency: Daily Amount used: 1gm Age of first use: 15 Date of Last Use: 02/27/17 Family Disease History - Family Disease History Family Disease History: Heart Disease: Father (HTN), [place]: Mother (METASTATIC OF UNKNOWN ORIGIN) Admission Physical Exam BHS - Vital Signs Vital Signs: Vital Signs - 24 hr 03/02/17 18:22 Temperature 98.3 F Pulse Rate 110 H Respiratory 18 Rate Blood Pressure 141/86 - Physical General Appearance: Yes: Tremorous, Irritable, Sweating, Anxious HEENTM: Yes: Nasal Congestion, Rhinorrhea Respiratory: Yes: Chest Non-Tender, Lungs Clear, Normal Breath Sounds Neck: Yes: Supple Breast: Yes: Breast Exam Deferred Cardiology: Yes: Regular Rhythm, Regular Rate, S1, S2 Abdominal: Yes: Normal Bowel Sounds, Non Tender, Flat, Soft Genitourinary: Yes: Within Normal Limits Back: Yes: Within Normal Limits Musculoskeletal: Yes: Within Normal Limits Extremities: Yes: Tremors Neurological: Yes: Fully Oriented, Alert Integumentary: Yes: Within Normal Limits Lymphatic: Yes: Within Normal Limits - Diagnostic (1) Cocaine dependence, uncomplicated Current Visit: No Status: Acute (2) Opioid dependence with withdrawal Current Visit: No Status: Acute (3) Uncomplicated sedative, hypnotic or anxiolytic withdrawal Current Visit: No Status: Acute Cleared for Admission [facility] - Detox or Rehab [facility] Level of Care: Medically Managed Detox Regimen/Protocol: Methadone/Valium [facility] Breath Alcohol Content Breath Alcohol Content: 0 Urine Drug Screen - Results Drug Screen Negative: No Urine Drug Screen Results: OPI-Opiates
[2017-03-02] MEDS ORDERED: P-EPHED 60MG/TRIPROLIDI 2.5MG TABLET PO PRN (19:11)
[2017-03-02] MEDS ORDERED: guaiFENesin/D-METHORPHAN HB 10 ML UNIT-DOSE CUPS PO PRN (19:11)
[2017-03-02] MEDS ORDERED: MAGNESIUM HYDROX 2400MG/30ML ORAL SUSPENSION 30 ML CUP PO PRN (19:11)
[2017-03-02] MEDS ORDERED: MENTHOL/PHENOL 1 EACH UD MM PRN (19:11)
[2017-03-02] MEDS ORDERED: LOPERAMIDE HCL 2 MG CAPSULE PO PRN (19:11)
[2017-03-02] MEDS ORDERED: ACETAMINOPHEN 325 MG TABLET (FP) PO PRN (19:11)
[2017-03-02] MEDS ORDERED: diazePAM 5 MG TABLET PO ONE (19:11)
[2017-03-02] MEDS ORDERED: NICOTINE POLACRILEX 2 MG GUM BC PRN (19:11)
[2017-03-02] MEDS ORDERED: MAGNESIUM CITRATE 300 ML BOTTLE PO PRN (19:11)
[2017-03-02] MEDS ORDERED: METHADONE HCL 10 MG TABLET (FOR DETOX USE ONLY) PO ONE ×2 (19:11→23:00)
[2017-03-02] MEDS ORDERED: MAG HYDROX/AL HYDROX/SIMETH 30 ML UNIT-DOSE CUP PO PRN (19:11)
[2017-03-02] MEDS ORDERED: IBUPROFEN 400 MG TABLET (FP) PO PRN (19:11)
[2017-03-02 20:23] LABS: URINE APPEARANCE SLCLOUDY; URINE BILIRUBIN NEGATIVE (NEGATIVE); URINE BLOOD NEGATIVE (NEGATIVE); URINE COLOR YELLOW; URINE GLUCOSE (UA) NEGATIVE (NEGATIVE); URINE KETONE TRACE (NEGATIVE); URINE LEUK ESTERASE NEGATIVE (NEGATIVE); URINE NITRITE NEGATIVE (NEGATIVE); URINE PROTEIN NEGATIVE (NEGATIVE); URINE UROBILINOGEN NEGATIVE mg/dL (0.2-1.0)
[2017-03-02] MEDS: diazePAM 5 MG TABLET PO SCH (22:31)
[2017-03-02] MEDS: THIAMINE HCL 100 MG TABLET (FP) PO SCH (22:31)
[2017-03-02] MEDS: diphenhydrAMINE HCL 50 MG CAPSULE PO PRN (23:29)
[2017-03-03] MEDS: diazePAM 5 MG TABLET PO PRN ×4 (02:43→17:38)
[2017-03-03] MEDS: diazePAM 5 MG TABLET PO SCH ×3 (05:38→22:40)
--- NOTE | 2017-03-03 09:55 | PN ---
[facility] CIWA - CIWA Score Nausea/Vomitin-Int. Nausea w/Dry Heave Muscle Tremors: 4-Moderate,w/Arms Extend Anxiety: 4-Mod. Anxious/Guarded Agitation: 3 Paroxysmal Sweats: 3 Orientation: 0-Oriented Tacttile Disturbances: 0-None Auditory Disturbances: 0-None Visual Disturbances: 0-None Headache: 0-None Present CIWA-Ar Total Score: 18 BHS COWS - Scale Resting Pulse: 1= [place] 81-100 Sweatin= Chills/Flushing Restless Observation: 1= Difficult to Sit Still Pupil Size: 1= Pupils >than Normal Bone or Joint Aches: 1= Mild Discomfort Runny Nose/ Eye Tearin= Runny Nose/Eyes GI Upset > 30mins: 2= Nausea/Diarrhea Tremor Observation of Outstretched Hands: 2= Slight Tremor Visible Yawning Observation: 1= 1-2x During Session Anxiety or Irritability: 2=Irritable/Anxious Goose Flesh Skin: 3=Piloerection COWS Score: 17 S Progress Note (SOAP) Subjective: nausea, sweats, interrupted sleep, anxiety, tremors, bodya aches Objective: 03/03/17 09:54 Vital Signs - 24 hr 03/02/17 03/02/17 03/03/17 18:22 22:28 00:38 Temperature 98.3 F 97.9 F Pulse Rate 110 H 72 Respiratory 18 18 18 Rate Blood Pressure 141/86 129/77 03/03/17 03/03/17 03/03/17 03:42 06:34 09:24 Temperature 96.2 F L 96.7 F L Pulse Rate 66 62 Respiratory 18 16 18 Rate Blood Pressure 139/88 153/96 Laboratory Tests 03/02/17 19:33 Urine Color Yellow Urine Appearance Slcloudy Urine pH 5.0 Ur Specific [place] >= 1.030 H Urine Protein Negative Urine Glucose (UA) Negative Urine Ketones Trace H Urine Blood Negative Urine Nitrite Negative Urine Bilirubin Negative Urine Urobilinogen Negative Ur Leukocyte Esterase Negative labs pending Assessment: 03/03/17 09:54 withdrawal sx Plan: cont detox, fluids, encourage ambulation, symptomatic relief
[2017-03-03] MEDS ORDERED: ONDANSETRON *ODT* 4 MG TABLET SL PRN (09:56)
[2017-03-03] MEDS ORDERED: METHADONE HCL 10 MG TABLET (FOR DETOX USE ONLY) PO SCH (10:00)
[2017-03-03 10:11] LABS: MCH 30.4 pg (25.7-33.7); MCHC 34.1 g/dl (32.0-35.9); MEAN PLT VOLUME 8.1 fl (7.5-11.1); PLATELET COUNT 201 K/MM3 (134-434); RDW 13.1 % (11.9-15.9); WHITE BLOOD COUNT 6.1 K/mm3 (4.0-10.0)
[2017-03-03 10:42] LABS: ALBUMIN 3.2 g/dl (3.4-5.0); ALK PHOS 48 U/L (45-117); ANION GAP 9 (8-16); BILIRUBIN,TOTAL 0.2 mg/dL (0.2-1.0); CO2 27 mmol/L (21-32); GLUCOSE,RANDOM 84 mg/dL (74-106); SGOT/AST 12 U/L (15-37); SGPT/ALT 20 U/L (12-78); TOT PROT 6.2 g/dl (6.4-8.2)
[2017-03-03] MEDS: PRENATAL VITAMINS W/ FOLIC ACID TABLET (FP) PO SCH (10:48)
[2017-03-03] MEDS: cloNIDine HCL 0.1 MG TABLET PO SCH ×2 (12:33→22:39)
[2017-03-03] MEDS: PANTOPRAZOLE 40 MG TABLET (FP) PO SCH (12:33)
[2017-03-03] MEDS: NAPROXEN 500 MG TABLET (FP) PO SCH ×2 (12:33→22:40)
[2017-03-03] MEDS: CYCLOBENZAPRINE HCL 10 MG TABLET (FP) PO SCH ×2 (14:40→22:40)
[2017-03-03] MEDS: THIAMINE HCL 100 MG TABLET (FP) PO SCH (22:40)
[2017-03-03] MEDS: ZOLPIDEM TARTRATE 10 MG TABLET (PARK CARE ONLY) PO PRN (22:42)
--- NOTE | 2017-03-03 23:17 | EKG ---
Test Reason : Blood Pressure : / mmHG Vent. Rate : 051 BPM Atrial Rate : 051 BPM P-R Int : 202 ms QRS Dur : 094 ms QT Int : 452 ms P-R-T Axes : 056 071 036 degrees QTc Int : 416 ms SINUS BRADYCARDIA WITH SINUS ARRHYTHMIA OTHERWISE NORMAL ECG WHEN COMPARED WITH ECG OF 02-MAR-2017 20:08, INCOMPLETE RIGHT BUNDLE BRANCH BLOCK IS NO LONGER PRESENT Confirmed by EITAN BILL, NOHEMI ([id number]) on 03/03/2017 11:16:59 PM Referred By: Confirmed By:NOHEMI LAIRD MD
--- NOTE | 2017-03-03 23:17 | EKG ---
Test Reason : Blood Pressure : / mmHG Vent. Rate : 068 BPM Atrial Rate : 068 BPM P-R Int : 174 ms QRS Dur : 092 ms QT Int : 410 ms P-R-T Axes : 045 083 041 degrees QTc Int : 435 ms NORMAL SINUS RHYTHM INCOMPLETE RIGHT BUNDLE BRANCH BLOCK BORDERLINE ECG WHEN COMPARED WITH ECG OF 11-OCT-2016 22:36, NO SIGNIFICANT CHANGE WAS FOUND Confirmed by NOHEMI LAIRD MD ([id number]) on 03/03/2017 11:17:33 PM Referred By: Confirmed By:NOHEMI LAIRD MD
[2017-03-04] MEDS: diazePAM 5 MG TABLET PO PRN ×4 (03:12→17:23)
[2017-03-04] MEDS: CYCLOBENZAPRINE HCL 10 MG TABLET (FP) PO SCH ×3 (06:13→22:34)
[2017-03-04] MEDS: NAPROXEN 500 MG TABLET (FP) PO SCH ×2 (10:39→23:10)
[2017-03-04] MEDS: PANTOPRAZOLE 40 MG TABLET (FP) PO SCH (10:39)
[2017-03-04] MEDS: METHADONE HCL 5 MG TABLET (FOR DETOX USE ONLY) PO SCH (10:39)
[2017-03-04] MEDS: diazePAM 5 MG TABLET PO SCH ×2 (10:39→22:35)
[2017-03-04] MEDS: PRENATAL VITAMINS W/ FOLIC ACID TABLET (FP) PO SCH (10:39)
[2017-03-04] MEDS: cloNIDine HCL 0.1 MG TABLET PO SCH ×2 (10:39→22:34)
--- NOTE | 2017-03-04 12:31 | PN ---
[facility] CIWA - CIWA Score Nausea/Vomitin-No Nausea/No Vomiting Muscle Tremors: 3 Anxiety: 5 Agitation: 0-Normal Activity Paroxysmal Sweats: 3 Orientation: 0-Oriented Tacttile Disturbances: 3-Moderate Itch/Numb/Burn Auditory Disturbances: 2-Mild Harshness/Frighten Visual Disturbances: 3-Moderate Sensitivity Headache: 0-None Present CIWA-Ar Total Score: 19 BHS COWS - Scale Resting Pulse: 0= [place] 80 or Below Sweatin= Chills/Flushing Restless Observation: 0= Sits Still Pupil Size: 0= Normal to Room Light Bone or Joint Aches: 2= Severe Diffuse Aches Runny Nose/ Eye Tearin= Runny Nose/Eyes GI Upset > 30mins: 1= Stomach Cramp Tremor Observation of Outstretched Hands: 2= Slight Tremor Visible Yawning Observation: 2= >3x During Session Anxiety or Irritability: 2=Irritable/Anxious Goose Flesh Skin: 3=Piloerection COWS Score: 15 S Progress Note (SOAP) Subjective: Interrupted sleep, Tremors, Body Aches, Fatigue. Objective: PT. A & O X 3, OBSERVED AMBULATING ON UNIT. NO ACUTE DISTRESS. PT. DENIES CHEST PAIN. 03/04/17 12:32 Vital Signs Temperature 97.1 F L 03/04/17 09:26 Pulse Rate 62 03/04/17 09:26 Respiratory Rate 18 03/04/17 09:26 Blood Pressure 140/90 03/04/17 09:26 O2 Sat by Pulse Oximetry (%) Laboratory Tests 03/02/17 03/03/17 03/03/17 19:33 07:00 07:00 WBC 6.1 RBC 4.02 Hgb 12.2 Hct 35.8 MCV 89.0 MCH 30.4 MCHC 34.1 RDW 13.1 Plt Count 201 MPV 8.1 Sodium 143 Potassium 4.1 Chloride 107 Carbon Dioxide 27 Anion Gap 9 BUN 19 H Creatinine 1.0 D Creat Clearance w eGFR > 60 Random Glucose 84 Calcium 9.0 Total Bilirubin 0.2 AST 12 L D ALT 20 D Alkaline Phosphatase 48 Total Protein 6.2 L Albumin 3.2 L Urine Color Yellow Urine Appearance Slcloudy Urine pH 5.0 Ur Specific [place] >= 1.030 H Urine Protein Negative Urine Glucose (UA) Negative Urine Ketones Trace H Urine Blood Negative Urine Nitrite Negative Urine Bilirubin Negative Urine Urobilinogen Negative Ur Leukocyte Esterase Negative RPR Titer 03/03/17 07:00 WBC RBC Hgb Hct MCV MCH MCHC RDW Plt Count MPV Sodium Potassium Chloride Carbon Dioxide Anion Gap BUN Creatinine Creat Clearance w eGFR Random Glucose Calcium Total Bilirubin AST ALT Alkaline Phosphatase Total Protein Albumin Urine Color Urine Appearance Urine pH Ur Specific [place] Urine Protein Urine Glucose (UA) Urine Ketones Urine Blood Urine Nitrite Urine Bilirubin Urine Urobilinogen Ur Leukocyte Esterase RPR Titer Nonreactive LABS NOTED. Assessment: 03/04/17 12:33 WITHDRAWAL SYMPTOMS. Plan: CONTINUE DETOX. INCREASE DAILY PO FLUID INTAKE.
[2017-03-04] MEDS: THIAMINE HCL 100 MG TABLET (FP) PO SCH (22:34)
[2017-03-04] MEDS: ZOLPIDEM TARTRATE 10 MG TABLET (PARK CARE ONLY) PO PRN (22:34)
[2017-03-05] MEDS: diazePAM 5 MG TABLET PO PRN ×4 (02:37→18:57)
[2017-03-05] MEDS: CYCLOBENZAPRINE HCL 10 MG TABLET (FP) PO SCH ×3 (06:09→22:33)
[2017-03-05] MEDS: cloNIDine HCL 0.1 MG TABLET PO SCH ×2 (10:33→22:33)
[2017-03-05] MEDS: PANTOPRAZOLE 40 MG TABLET (FP) PO SCH (10:33)
[2017-03-05] MEDS: diazePAM 5 MG TABLET PO SCH ×2 (10:33→22:33)
[2017-03-05] MEDS: METHADONE HCL 5 MG TABLET (FOR DETOX USE ONLY) PO SCH (10:33)
[2017-03-05] MEDS: PRENATAL VITAMINS W/ FOLIC ACID TABLET (FP) PO SCH (10:33)
[2017-03-05] MEDS: NAPROXEN 500 MG TABLET (FP) PO SCH ×2 (10:34→22:33)
--- NOTE | 2017-03-05 13:34 | PN ---
BHS Progress Note (SOAP) Subjective: Nausea, Stomach Cramping, H/A, Fatigue, Interrupted sleep. Objective: PT. A & O X 2 (DISORIENTED ABOUT DAY / DATE). PT .OBSERVED AMBULATING ON UNIT. NO ACUTE DISTRESS. 03/05/17 13:32 Vital Signs Temperature 98.2 F 03/05/17 09:48 Pulse Rate 83 03/05/17 09:48 Respiratory Rate 18 03/05/17 09:48 Blood Pressure 137/87 03/05/17 09:48 O2 Sat by Pulse Oximetry (%) Laboratory Tests 03/02/17 03/03/17 03/03/17 19:33 07:00 07:00 WBC 6.1 RBC 4.02 Hgb 12.2 Hct 35.8 MCV 89.0 MCH 30.4 MCHC 34.1 RDW 13.1 Plt Count 201 MPV 8.1 Sodium 143 Potassium 4.1 Chloride 107 Carbon Dioxide 27 Anion Gap 9 BUN 19 H Creatinine 1.0 D Creat Clearance w eGFR > 60 Random Glucose 84 Calcium 9.0 Total Bilirubin 0.2 AST 12 L D ALT 20 D Alkaline Phosphatase 48 Total Protein 6.2 L Albumin 3.2 L Urine Color Yellow Urine Appearance Slcloudy Urine pH 5.0 Ur Specific [place] >= 1.030 H Urine Protein Negative Urine Glucose (UA) Negative Urine Ketones Trace H Urine Blood Negative Urine Nitrite Negative Urine Bilirubin Negative Urine Urobilinogen Negative Ur Leukocyte Esterase Negative RPR Titer 03/03/17 07:00 WBC RBC Hgb Hct MCV MCH MCHC RDW Plt Count MPV Sodium Potassium Chloride Carbon Dioxide Anion Gap BUN Creatinine Creat Clearance w eGFR Random Glucose Calcium Total Bilirubin AST ALT Alkaline Phosphatase Total Protein Albumin Urine Color Urine Appearance Urine pH Ur Specific [place] Urine Protein Urine Glucose (UA) Urine Ketones Urine Blood Urine Nitrite Urine Bilirubin Urine Urobilinogen Ur Leukocyte Esterase RPR Titer Nonreactive LABS NOTED. Assessment: 03/05/17 13:33 WITHDRAWAL SYMPTOMS. Plan: CONTINUE DETOX.
[2017-03-05] MEDS: ZOLPIDEM TARTRATE 10 MG TABLET (PARK CARE ONLY) PO PRN (22:32)
[2017-03-05] MEDS: THIAMINE HCL 100 MG TABLET (FP) PO SCH (22:32)
[2017-03-06] MEDS: diphenhydrAMINE HCL 50 MG CAPSULE PO PRN (00:39)
[2017-03-06] MEDS: hydrOXYzine PAMOATE 50 MG CAPSULE (FP) PO PRN ×4 (05:47→22:46)
[2017-03-06] MEDS: CYCLOBENZAPRINE HCL 10 MG TABLET (FP) PO SCH ×3 (05:47→22:46)
[2017-03-06] MEDS ORDERED: METHADONE HCL 10 MG TABLET (FOR DETOX USE ONLY) PO SCH (10:00)
[2017-03-06] MEDS ORDERED: diazePAM 5 MG TABLET PO SCH (10:00)
[2017-03-06] MEDS: cloNIDine HCL 0.1 MG TABLET PO SCH ×2 (10:32→22:47)
[2017-03-06] MEDS: PRENATAL VITAMINS W/ FOLIC ACID TABLET (FP) PO SCH (10:32)
[2017-03-06] MEDS: PANTOPRAZOLE 40 MG TABLET (FP) PO SCH (10:32)
[2017-03-06] MEDS: NAPROXEN 500 MG TABLET (FP) PO SCH ×2 (10:32→22:46)
--- NOTE | 2017-03-06 13:55 | PN ---
BHS Progress Note (SOAP) Subjective: Sweating, Fatigue. Objective: PT. A & O X 2 (DISORIENTED ABOUT DAY / DATE). PT. OBSERVED AMBULATING ON UNIT. NO ACUTE DISTRESS. 03/06/17 13:53 Vital Signs Temperature 97.8 F 03/06/17 10:26 Pulse Rate 88 03/06/17 10:26 Respiratory Rate 18 03/06/17 10:26 Blood Pressure 127/82 03/06/17 10:26 O2 Sat by Pulse Oximetry (%) Laboratory Tests 03/02/17 03/03/17 03/03/17 19:33 07:00 07:00 WBC 6.1 RBC 4.02 Hgb 12.2 Hct 35.8 MCV 89.0 MCH 30.4 MCHC 34.1 RDW 13.1 Plt Count 201 MPV 8.1 Sodium 143 Potassium 4.1 Chloride 107 Carbon Dioxide 27 Anion Gap 9 BUN 19 H Creatinine 1.0 D Creat Clearance w eGFR > 60 Random Glucose 84 Calcium 9.0 Total Bilirubin 0.2 AST 12 L D ALT 20 D Alkaline Phosphatase 48 Total Protein 6.2 L Albumin 3.2 L Urine Color Yellow Urine Appearance Slcloudy Urine pH 5.0 Ur Specific [place] >= 1.030 H Urine Protein Negative Urine Glucose (UA) Negative Urine Ketones Trace H Urine Blood Negative Urine Nitrite Negative Urine Bilirubin Negative Urine Urobilinogen Negative Ur Leukocyte Esterase Negative RPR Titer 03/03/17 07:00 WBC RBC Hgb Hct MCV MCH MCHC RDW Plt Count MPV Sodium Potassium Chloride Carbon Dioxide Anion Gap BUN Creatinine Creat Clearance w eGFR Random Glucose Calcium Total Bilirubin AST ALT Alkaline Phosphatase Total Protein Albumin Urine Color Urine Appearance Urine pH Ur Specific [place] Urine Protein Urine Glucose (UA) Urine Ketones Urine Blood Urine Nitrite Urine Bilirubin Urine Urobilinogen Ur Leukocyte Esterase RPR Titer Nonreactive LABS NOTED. Assessment: 03/06/17 13:54 WITHDRAWAL SYMPTOMS. Plan: CONTINUE DETOX. INCREASE DAILY PO FLUID INTAKE.
[2017-03-06] MEDS: THIAMINE HCL 100 MG TABLET (FP) PO SCH (22:46)
[2017-03-07] MEDS: CYCLOBENZAPRINE HCL 10 MG TABLET (FP) PO SCH (05:35)
[2017-03-07] MEDS: hydrOXYzine PAMOATE 50 MG CAPSULE (FP) PO PRN (05:37)
[2017-03-07] MEDS ORDERED: METHADONE HCL 5 MG TABLET (FOR DETOX USE ONLY) PO SCH (06:00)
[2017-03-07 06:33] VITALS: BP 120/83; PULSE 100; TEMP 97.4
--- NOTE | 2017-03-07 13:54 | DS ---
[facility] Detox Discharge Summary Admission Date: 03/02/17 Discharge Date: 03/07/17 - History Present History: Cocaine Dependence, Opioid Dependence, Sedative Dependence Additional Comments: PATIENT ELECTING TO GO HOME AT THIS TIME, WILL POSSIBLY CONSIDER REHAB FOR A LATER DATE. ADVISED PATIENT CONSIDER LOCAL OUTPATIENT 12-STEP / NA SUPPORT GROUPS FOR AFTERCARE. PATIENT ALSO EXPRESSING INTEREST IN [facility] MAINTENANCE AFTER DISCHARGE FROM DETOX. LIST OF REFERRAL RESOURCES FOR [facility] MEDICAL PROVIDERS FOR AREA SURROUNDING PATIENT'S RESIDENCE ([facility] PROVIDED TO PATIENT AT DISCHARGE. PATIENT WAS DISCHARGED FROM DETOX UNIT IN STABLE MEDICAL CONDITION. - Physical Exam Results Vital Signs: Vital Signs Temperature 97.4 F L 03/07/17 06:32 Pulse Rate 100 H 03/07/17 06:32 Respiratory Rate 20 03/07/17 06:32 Blood Pressure 120/83 03/07/17 06:32 O2 Sat by Pulse Oximetry (%) Pertinent Admission Physical Exam Findings: WITHDRAWAL SYMPTOMS. Laboratory Tests 03/02/17 03/03/17 03/03/17 19:33 07:00 07:00 WBC 6.1 RBC 4.02 Hgb 12.2 Hct 35.8 MCV 89.0 MCH 30.4 MCHC 34.1 RDW 13.1 Plt Count 201 MPV 8.1 Sodium 143 Potassium 4.1 Chloride 107 Carbon Dioxide 27 Anion Gap 9 BUN 19 H Creatinine 1.0 D Creat Clearance w eGFR > 60 Random Glucose 84 Calcium 9.0 Total Bilirubin 0.2 AST 12 L D ALT 20 D Alkaline Phosphatase 48 Total Protein 6.2 L Albumin 3.2 L Urine Color Yellow Urine Appearance Slcloudy Urine pH 5.0 Ur Specific [place] >= 1.030 H Urine Protein Negative Urine Glucose (UA) Negative Urine Ketones Trace H Urine Blood Negative Urine Nitrite Negative Urine Bilirubin Negative Urine Urobilinogen Negative Ur Leukocyte Esterase Negative RPR Titer 03/03/17 07:00 WBC RBC Hgb Hct MCV MCH MCHC RDW Plt Count MPV Sodium Potassium Chloride Carbon Dioxide Anion Gap BUN Creatinine Creat Clearance w eGFR Random Glucose Calcium Total Bilirubin AST ALT Alkaline Phosphatase Total Protein Albumin Urine Color Urine Appearance Urine pH Ur Specific [place] Urine Protein Urine Glucose (UA) Urine Ketones Urine Blood Urine Nitrite Urine Bilirubin Urine Urobilinogen Ur Leukocyte Esterase RPR Titer Nonreactive LABS NOTED. - Treatment Hospital Course: Detox Protocol Followed, Detoxed Safely, Responded well, Discharged Condition Good Patient has Accepted a Rehab Referral to: PT. WILL PURSUE OUTPATIENT CARE. SEE ' ADDITIONAL COMMENTS' SECTION ABOVE. - Medication Discharge Medications: Ambulatory Orders NK [No Known Home Medication] 03/02/17 - Diagnosis (1) Cocaine dependence, uncomplicated Status: Acute (2) Opioid dependence with withdrawal Status: Acute (3) Uncomplicated sedative, hypnotic or anxiolytic withdrawal Status: Acute - AMA Did Patient Leave Against Medical Advice: No
== END 2017-03-07 10:12 | disposition home or self-care (01) | DRG 773 ==
LOC: YASAS 17:58 → Y3N 19:07
PROVIDERS: ADMIT Internal Medicine Addiction Medicine; ATTEND Internal Medicine Addiction Medicine
PROC: HZ2ZZZZ Detoxification Services for Substance Abuse Treatment (ICD-10-PCS; principal; 2017-03-02)
DX: F11.23 Opioid dependence with withdrawal (principal); F13.230 Sedative, hypnotic or anxiolytic dependence with withdrawal, uncomplicated; F14.20 Cocaine dependence, uncomplicated
CPT/HCPCS: 36415; 80053; 81003; 85027; 86593; 93005; 93010

== ENCOUNTER 2018-03-06 09:35 | Inpatient (IN) | payer OTHER ==
[2018-03-06 10:43] VITALS: BMI 27.4
--- NOTE | 2018-03-06 15:31 | HP ---
COWS - Scale Resting Pulse: 0= [place] 80 or Below Sweatin=Flushed/Facial Moisture Restless Observation: 1= Difficult to Sit Still Pupil Size: 1= Pupils >than Normal Bone or Joint Aches: 2= Severe Diffuse Aches Runny Nose/ Eye Tearin= Runny Nose/Eyes GI Upset > 30mins: 2= Nausea/Diarrhea Tremor Observation: 0= None Yawning Observation: 1= 1-2x During Session Anxiety or Irritability: 1=Feels Anxious/Irritable Goose Flesh Skin: 0=Smooth Skin COWS Score: 12 CIWA Score - CIWA Score Nausea/Vomitin Muscle Tremors: None Anxiety: 2 Agitation: 2 Paroxysmal Sweats: 2 Orientation: 0-Oriented Tacttile Disturbances: 2-Mild Itch/Numbness/Burn Auditory Disturbances: 0-None Visual Disturbances: 0-None Headache: 2-Mild CIWA-Ar Total Score: 12 Admission [facility] Chief Complaint: Patient presents with ETOH/Heroin/Xanax withdrawal symptoms. Allergies/Adverse Reactions: Allergies Allergy/AdvReac Type Severity Reaction Status Date / Time No Known Drug Allergies Allergy Verified 03/06/18 10:54 History of Present Illness: Patient presents with heroin/xanax/alcohol withdrawal symptoms. Patient started using substances 16 years old. Patient sniffs 15 bags of Heroin daily, injests 4mg of Xanax and drinks 1 pint of vodka daily. Denies having seizures. Had overdose x 2. Last overdose 2 days ago. Last time patient used substances was earlier today. Patient denies significant PMH. Last attempt at detox was one year ago. Denies SI/HI and suicide attempts. Exam Limitations: No Limitations - Ebola screening Have you traveled outside of the country in the last 21 days: No Have you had contact with anyone from an Ebola affected area: No Have you been sick,other than usual withdrawal symptoms: No Do you have a fever: No - Review of Systems Constitutional: Chills, Night Sweats, Changes in sleep, Unexplained wgt Loss EENT: reports: Tearing, Nose Congestion Respiratory: reports: No Symptoms reported Cardiac: reports: No Symptoms Reported GI: reports: Diarrhea, Nausea, Poor Appetite, Poor Fluid Intake, Abdominal cramping : reports: Frequency Musculoskeletal: reports: Back Pain, Joint Pain Integumentary: reports: Erythema, Flushing, Sweating Neuro: reports: Headache, Numbness, Tingling, Tremors Endocrine: reports: Unexplained Weight Loss Hematology: reports: No Symptoms Reported Psychiatric: reports: Orientated x3, Anxious, Depressed Patient History - Patient Medical History Hx Anemia: No Hx Asthma: No Hx Chronic Obstructive Pulmonary Disease (COPD): No Hx Cancer: No Hx Cardiac Disorders: No Hx Congestive Heart Failure: No Hx Hypertension: No Hx Hypercholesterolemia: No Hx Pacemaker: No HX Cerebrovascular Accident: No Hx Seizures: No Hx Dementia: No Hx Diabetes: No Hx Gastrointestinal Disorders: Yes (acid reflux) Hx Liver Disease: No Hx Genitourinary Disorders: No Hx Sexually Transmitted Disorders: No Hx Renal Disease (ESRD): No Hx Thyroid Disease: No Hx Human Immunodeficiency Virus (HIV): No Hx Hepatitis C: No Hx Depression: No Hx Suicide Attempt: No Hx Bipolar Disorder: No Hx Schizophrenia: No - Patient Surgical History Past Surgical History: No Hx Neurologic Surgery: No Hx Cataract Extraction: No Hx Cardiac Surgery: No Hx Lung Surgery: No Hx Breast Surgery: No Hx Breast Biopsy: No Hx Abdominal Surgery: No Hx Appendectomy: No Hx Cholecystectomy: No Hx Genitourinary Surgery: No Hx Orthopedic Surgery: No Anesthesia Reaction: No - PPD History Previous Implant?: Yes Documented Results: Negative w/proof Implanted On Prior R Admission?: Yes Date: 10/13/16 Results: 0 mm PPD to be Administered?: Yes - Smoking Cessation Smoking history: Never smoked Have you smoked in the past 12 months: No Aproximately how many cigarettes per day: 2 Hx Chewing Tobacco Use: No Initiated information on smoking cessation: No - Substance & Tx. History Hx Alcohol Use: Yes Hx Substance Use: Yes Substance Use Type: Alcohol, Heroin, Tranquilizers Hx Substance Use Treatment: Yes - Substances Abused Heroin Route: Inhalation Frequency: Daily Amount used: 10 bags Age of first use: 29 Date of Last Use: 03/05/18 Xanax Route: Oral Frequency: Daily Amount used: 2-4 mg. Age of first use: 27 Date of Last Use: 03/05/18 Alcohol-vodka/whisky Route: Oral Frequency: Daily Amount used: 1 pt. Age of first use: 20 Date of Last Use: 03/05/18 Family Disease History - Family Disease History Family Disease History: Heart Disease: Father (HTN), CA: Mother (METASTATIC OF UNKNOWN ORIGIN) Admission Physical Exam [facility] - Vital Signs Vital Signs: Vital Signs - 24 hr 03/06/18 10:39 Temperature 98.2 F Pulse Rate 66 Respiratory 18 Rate Blood Pressure 141/95 - Physical General Appearance: Yes: Appropriately Dressed, Tremorous, Sweating, Anxious HEENTM: Yes: EOMI, Hearing grossly Normal, Normocephalic, Normal Voice, BUDDY, Pharynx Normal, Nasal Congestion Respiratory: Yes: Chest Non-Tender, Lungs Clear, Normal Breath Sounds, No Respiratory Distress, No Accessory Muscle Use Neck: Yes: No masses,lesions,Nodules, Supple Breast: Yes: Breast Exam Deferred Cardiology: Yes: Regular Rhythm, Regular Rate, S1, S2 Abdominal: Yes: Normal Bowel Sounds, Non Tender, Flat, Soft Genitourinary: Yes: Frequency Back: Yes: Muscle Spasm Musculoskeletal: Yes: full range of Motion, Gait Steady, Back pain, Muscle Pain Extremities: Yes: Normal Inspection, Normal Range of Motion, Non-Tender, Tremors Neurological: Yes: wood heel cementer II-XII NML intact, Fully Oriented, Alert, Motor Strength 5/5, Normal Response, Depressed Affect Integumentary: Yes: Warm, Erythema, Moist Lymphatic: Yes: Within Normal Limits - Diagnostic (1) Depressed affect Current Visit: Yes Status: Suspected (2) Alcohol dependence with uncomplicated withdrawal Current Visit: Yes Status: Acute (3) Opioid dependence with withdrawal Current Visit: Yes Status: Acute (4) Uncomplicated sedative, hypnotic or anxiolytic withdrawal Current Visit: Yes Status: Acute Cleared for Admission [facility] - Detox or Rehab [facility] Level of Care: Medically Managed Detox Regimen/Protocol: Methadone/Valium [facility] Breath Alcohol Content Breath Alcohol Content: 0 Urine Drug Screen - Results Drug Screen Negative: No Urine Drug Screen Results: THC-Marijuana, OPI-Opiates, BZO-Benzodiazepines
[2018-03-06] MEDS ORDERED: P-EPHED 60MG/TRIPROLIDI 2.5MG TABLET PO PRN (15:40)
[2018-03-06] MEDS ORDERED: MENTHOL/PHENOL 1 EACH UD MM PRN (15:40)
[2018-03-06] MEDS ORDERED: guaiFENesin/D-METHORPHAN HB 10 ML UNIT-DOSE CUPS PO PRN (15:40)
[2018-03-06] MEDS ORDERED: MAG HYDROX/AL HYDROX/SIMETH 30 ML UNIT-DOSE CUP PO PRN (15:40)
[2018-03-06] MEDS ORDERED: LOPERAMIDE HCL 2 MG CAPSULE PO PRN (15:40)
[2018-03-06] MEDS ORDERED: MAGNESIUM CITRATE 300 ML BOTTLE PO PRN (15:40)
[2018-03-06] MEDS ORDERED: ACETAMINOPHEN 325 MG TABLET (FP) PO PRN (15:40)
[2018-03-06] MEDS ORDERED: diazePAM 5 MG TABLET PO ONE (15:50)
[2018-03-06] MEDS ORDERED: METHADONE HCL 10 MG TABLET (FOR DETOX USE ONLY) PO ONE ×2 (15:50→23:00)
[2018-03-06] MEDS: diazePAM 5 MG TABLET PO SCH ×2 (17:11→22:11)
--- NOTE | 2018-03-06 17:55 | CONSULT ---
[facility] Psychiatric Consult - Data Date of interview: 03/06/18 Admission source: [facility] Identifying data: Patient is a 32 year old single male, without children, unemployed, domiciled, and is supported by savings and family. This is one of multiple admissions for patient. Pt. admitted to for opiate dependence. Substance Abuse History: Smoking Cessation. Smoking history: Never smoked. Have you smoked in the past 12 months: No. Aproximately how many cigarettes per day: 2. Hx Chewing Tobacco Use: No. Initiated information on smoking cessation: No. - Substance & Tx. History. Hx Alcohol Use: Yes. Hx Substance Use: Yes. Substance Use Type: Alcohol, Heroin, Tranquilizers. Hx Substance Use Treatment: Yes. - Substances Abused. Heroin. Route: Inhalation. Frequency: Daily. Amount used: 10 bags. Age of first use: 29. Date of Last Use: 03/05/18. Xanax. Route: Oral. Frequency: Daily. Amount used: 2-4 mg. Age of first use: 27. Date of Last Use: 03/05/18. Alcohol-vodka/ whisky. Route: Oral. Frequency: Daily. Amount used: 1 pt. Age of first use: 20. Date of Last Use: 03/05/18 Medical History: acid reflux Psychiatric History: Patient denies h/o psychiatric hospitalization, outpatient care, and suicide attempt. Pt. reports h/o anxiety. Physical/Sexual Abuse/Trauma History: denies. Mental Status Exam - Mental Status Exam Alert and Oriented to: Time, Place, Person Cognitive Function: Good Patient Appearance: Well Groomed Mood: Hopeful Affect: Appropriate Patient Behavior: Talkative, Appropriate, Cooperative Speech Pattern: Clear, Appropriate Voice Loudness: Normal Thought Process: Intact, Goal Oriented Thought Disorder: Not Present Hallucinations: Denies Suicidal Ideation: Denies Homicidal Ideation: Denies Insight/Judgement: Poor Sleep: Fair Appetite: Fair Muscle strength/Tone: Normal Gait/Station: Normal Psychiatric Findings - Problem List ([place] 1, 2,3) (1) Alcohol dependence with uncomplicated withdrawal Current Visit: Yes Status: Acute (2) Opioid dependence with withdrawal Current Visit: Yes Status: Acute (3) Uncomplicated sedative, hypnotic or anxiolytic withdrawal Current Visit: Yes Status: Acute - Initial Treatment Plan Initial Treatment Plan: Psychoeducation provided. Detoxification in progress. Vistaril 50mg q4 ordered by [facility]. Medications reviewed with patient. Observation.
[2018-03-06] MEDS: diazePAM 5 MG TABLET PO PRN (20:07)
[2018-03-06] MEDS: IBUPROFEN 400 MG TABLET (FP) PO PRN (22:10)
[2018-03-06] MEDS: THIAMINE HCL 100 MG TABLET (FP) PO SCH (22:11)
[2018-03-07] MEDS: diazePAM 5 MG TABLET PO SCH ×3 (05:11→23:50)
[2018-03-07] MEDS ORDERED: METHADONE HCL 10 MG TABLET (FOR DETOX USE ONLY) PO SCH (10:00)
[2018-03-07] MEDS: PRENATAL VITAMINS W/ FOLIC ACID TABLET (FP) PO SCH (10:43)
[2018-03-07] MEDS: diazePAM 5 MG TABLET PO PRN ×3 (10:43→22:55)
[2018-03-07 10:58] LABS: URINE APPEARANCE CLEAR; URINE BILIRUBIN NEGATIVE (<2.0 mg/dL); URINE COLOR YELLOW; URINE GLUCOSE (UA) NEGATIVE (NEGATIVE); URINE KETONE NEGATIVE (NEGATIVE); URINE LEUK ESTERASE NEGATIVE (NEGATIVE); URINE NITRITE NEGATIVE (NEGATIVE); URINE PROTEIN NEGATIVE (NEGATIVE); URINE UROBILINOGEN NEGATIVE mg/dL (0.2-1.0)
[2018-03-07 11:24] LABS: CHLORIDE 108 mmol/L (98-107); POTASSIUM 4.4 mmol/L (3.5-5.1); SODIUM 143 mmol/L (136-145)
[2018-03-07 11:28] LABS: HEMOGLOBIN 13.4 GM/dL (11.7-16.9); MCH 30.1 pg (25.7-33.7); MCHC 34.4 g/dl (32.0-35.9); MEAN CELL VOLUME 87.3 fl (80-96); MEAN PLT VOLUME 8.9 fl (7.5-11.1); PLATELET COUNT 288 K/MM3 (134-434); RBC 4.47 M/mm3 (4.00-5.60); RDW 13.1 % (11.9-15.9); WHITE BLOOD COUNT 5.8 K/mm3 (4.0-10.0)
[2018-03-07 11:32] LABS: ALK PHOS 61 U/L (45-117); ANION GAP 13 MMOL/L (8-16); BILIRUBIN,TOTAL 0.4 mg/dL (0.2-1.0); BLOOD UREA NITROGEN 8 mg/dL (7-18); CALCIUM 8.8 mg/dL (8.5-10.1); CO2 22 mmol/L (21-32); CREATININE 0.9 mg/dL (0.55-1.3); GLUCOSE,RANDOM 99 mg/dL (74-106); SGOT/AST 16 U/L (15-37); SGPT/ALT 18 U/L (13-61); TOT PROT 7.5 g/dl (6.4-8.2)
[2018-03-07] MEDS: hydrOXYzine PAMOATE 50 MG CAPSULE (FP) PO PRN ×2 (14:11→20:03)
--- NOTE | 2018-03-07 14:43 | PN ---
[facility] CIWA - CIWA Score Nausea/Vomitin-Mild Nausea/No Vomiting Muscle Tremors: 1-None Visible, but [place] Anxiety: 1-Mildly Anxious Agitation: 1-Slight > Activity Paroxysmal Sweats: 1-Minimal Palms Moist Orientation: 0-Oriented Tacttile Disturbances: 0-None Auditory Disturbances: 0-None Visual Disturbances: 0-None Headache: 0-None Present CIWA-Ar Total Score: 5 S COWS - Scale Resting Pulse: 1= [place] 81-100 Sweatin= No chills or Flushing Restless Observation: 1= Difficult to Sit Still Pupil Size: 1= Pupils >than Normal Bone or Joint Aches: 1= Mild Discomfort Runny Nose/ Eye Tearin= Nasal Congestion GI Upset > 30mins: 0= None Tremor Observation of Outstretched Hands: 1= Tremor [place], Not Seen Yawning Observation: 0= None Anxiety or Irritability: 0= None Goose Flesh Skin: 0=Smooth Skin COWS Score: 6 S Progress Note (SOAP) Subjective: pt is here for dual detox, says he would like to go to rehab O: Vital Signs - 24 hr 03/06/18 03/06/18 03/07/18 18:10 22:12 00:30 Temperature 97.5 F L 97.5 F L Pulse Rate 79 68 Respiratory 18 18 18 Rate Blood Pressure 146/82 140/77 03/07/18 03/07/18 03/07/18 03:30 07:40 08:48 Temperature 97.7 F 98.2 F Pulse Rate 69 78 Respiratory 18 18 16 Rate Blood Pressure 135/90 146/95 03/07/18 14:07 Temperature 98.1 F Pulse Rate 68 Respiratory 16 Rate Blood Pressure 136/75 labs are WNL, Laboratory Tests 03/07/18 03/07/18 03/07/18 05:40 05:40 05:40 WBC 5.8 RBC 4.47 Hgb 13.4 Hct 39.0 MCV 87.3 MCH 30.1 MCHC 34.4 RDW 13.1 Plt Count 288 D MPV 8.9 Sodium 143 Potassium 4.4 Chloride 108 H Carbon Dioxide 22 Anion Gap 13 BUN 8 Creatinine 0.9 Creat Clearance w eGFR > 60 Random Glucose 99 Calcium 8.8 Total Bilirubin 0.4 AST 16 ALT 18 Alkaline Phosphatase 61 Total Protein 7.5 Albumin 4.0 Urine Color Urine Appearance Urine pH Ur Specific [place] Urine Protein Urine Glucose (UA) Urine Ketones Urine Blood Urine Nitrite Urine Bilirubin Urine Urobilinogen Ur Leukocyte Esterase RPR Titer HIV 1&2 Antibody Screen Negative HIV P24 Antigen Negative 03/07/18 03/07/18 05:40 09:00 WBC RBC Hgb Hct MCV MCH MCHC RDW Plt Count MPV Sodium Potassium Chloride Carbon Dioxide Anion Gap BUN Creatinine Creat Clearance w eGFR Random Glucose Calcium Total Bilirubin AST ALT Alkaline Phosphatase Total Protein Albumin Urine Color Yellow Urine Appearance Clear Urine pH 7.0 D Ur Specific [place] 1.016 Urine Protein Negative Urine Glucose (UA) Negative Urine Ketones Negative Urine Blood Negative Urine Nitrite Negative Urine Bilirubin Negative Urine Urobilinogen Negative Ur Leukocyte Esterase Negative RPR Titer Nonreactive HIV 1&2 Antibody Screen HIV P24 Antigen a/p: continue detox protocols, pt to talk to counselor re rehab
[2018-03-07] MEDS: IBUPROFEN 400 MG TABLET (FP) PO PRN (20:03)
[2018-03-07] MEDS: THIAMINE HCL 100 MG TABLET (FP) PO SCH (22:56)
[2018-03-08] MEDS: diazePAM 5 MG TABLET PO PRN ×3 (08:59→17:02)
[2018-03-08] MEDS: diazePAM 5 MG TABLET PO SCH ×2 (09:59→22:35)
[2018-03-08] MEDS: METHADONE HCL 5 MG TABLET (FOR DETOX USE ONLY) PO SCH (09:59)
[2018-03-08] MEDS: PRENATAL VITAMINS W/ FOLIC ACID TABLET (FP) PO SCH (09:59)
[2018-03-08] MEDS: MAGNESIUM HYDROX 2400MG/30ML ORAL SUSPENSION 30 ML CUP PO PRN (12:52)
--- NOTE | 2018-03-08 13:02 | PN ---
[facility] CIWA - CIWA Score Nausea/Vomitin-No Nausea/No Vomiting Muscle Tremors: 3 Anxiety: 2 Agitation: 3 Paroxysmal Sweats: 1-Minimal Palms Moist Orientation: 0-Oriented Tacttile Disturbances: 1-Very Mild Itch/Numbness Auditory Disturbances: 0-None Visual Disturbances: 0-None Headache: 0-None Present CIWA-Ar Total Score: 10 [facility] COWS - Scale Resting Pulse: 0= [place] 80 or Below Sweatin= Chills/Flushing Restless Observation: 1= Difficult to Sit Still Pupil Size: 0= Normal to Room Light Bone or Joint Aches: 1= Mild Discomfort Runny Nose/ Eye Tearin= Nasal Congestion GI Upset > 30mins: 1= Stomach Cramp Tremor Observation of Outstretched Hands: 2= Slight Tremor Visible Yawning Observation: 1= 1-2x During Session Anxiety or Irritability: 2=Irritable/Anxious Goose Flesh Skin: 0=Smooth Skin COWS Score: 10 [facility] Progress Note (SOAP) Subjective: mild gi distress sweat tremor restlessness reported fell "few days ago" skin abrasion noted mid bridge of nose no acute bleeding breathing pattern patent Objective: 03/08/18 13:01 Vital Signs Temperature 98.1 F 03/08/18 09:28 Pulse Rate 75 03/08/18 09:28 Respiratory Rate 18 03/08/18 09:28 Blood Pressure 146/71 03/08/18 09:28 O2 Sat by Pulse Oximetry (%) Laboratory Last Values WBC 5.8 K/mm3 (4.0-10.0) 03/07/18 05:40 RBC 4.47 M/mm3 (4.00-5.60) 03/07/18 05:40 Hgb 13.4 GM/dL (11.7-16.9) 03/07/18 05:40 Hct 39.0 % (35.4-49) 03/07/18 05:40 MCV 87.3 fl (80-96) 03/07/18 05:40 MCH 30.1 pg (25.7-33.7) 03/07/18 05:40 MCHC 34.4 g/dl (32.0-35.9) 03/07/18 05:40 RDW 13.1 % (11.9-15.9) 03/07/18 05:40 Plt Count 288 K/MM3 (134-434) D 03/07/18 05:40 MPV 8.9 fl (7.5-11.1) 03/07/18 05:40 Sodium 143 mmol/L (136-145) 03/07/18 05:40 Potassium 4.4 mmol/L (3.5-5.1) 03/07/18 05:40 Chloride 108 mmol/L (98-107) H 03/07/18 05:40 Carbon Dioxide 22 mmol/L (21-32) 03/07/18 05:40 Anion Gap 13 MMOL/L (8-16) 03/07/18 05:40 BUN 8 mg/dL (7-18) 03/07/18 05:40 Creatinine 0.9 mg/dL (0.55-1.3) 03/07/18 05:40 Creat Clearance w eGFR > 60 (>60) 03/07/18 05:40 Random Glucose 99 mg/dL (74-106) 03/07/18 05:40 Calcium 8.8 mg/dL (8.5-10.1) 03/07/18 05:40 Total Bilirubin 0.4 mg/dL (0.2-1.0) 03/07/18 05:40 AST 16 U/L (15-37) 03/07/18 05:40 ALT 18 U/L (13-61) 03/07/18 05:40 Alkaline Phosphatase 61 U/L (45-117) 03/07/18 05:40 Total Protein 7.5 g/dl (6.4-8.2) 03/07/18 05:40 Albumin 4.0 g/dl (3.4-5.0) 03/07/18 05:40 Urine Color Yellow 03/07/18 09:00 Urine Appearance Clear 03/07/18 09:00 Urine pH 7.0 (5.0-8.0) D 03/07/18 09:00 Ur Specific [place] 1.016 (1.001-1.035) 03/07/18 09:00 Urine Protein Negative (NEGATIVE) 03/07/18 09:00 Urine Glucose (UA) Negative (NEGATIVE) 03/07/18 09:00 Urine Ketones Negative (NEGATIVE) 03/07/18 09:00 Urine Blood Negative (NEGATIVE) 03/07/18 09:00 Urine Nitrite Negative (NEGATIVE) 03/07/18 09:00 Urine Bilirubin Negative (<2.0 mg/dL) 03/07/18 09:00 Urine Urobilinogen Negative mg/dL (0.2-1.0) 03/07/18 09:00 Ur Leukocyte Esterase Negative (NEGATIVE) 03/07/18 09:00 RPR Titer Nonreactive (NONREACTIVE) 03/07/18 05:40 HIV 1&2 Antibody Screen Negative 03/07/18 05:40 HIV P24 Antigen Negative 03/07/18 05:40 lab noted Assessment: 03/08/18 13:01 withdrawal sx skin abrasion Plan: continue detox bacitracin oint
[2018-03-08] MEDS: BACITRACIN 0.9 GM PACKET TP SCH ×2 (14:06→23:43)
[2018-03-08] MEDS: MELATONIN 5 MG TABLETS PO PRN (22:35)
[2018-03-08] MEDS: THIAMINE HCL 100 MG TABLET (FP) PO SCH (22:35)
[2018-03-08] MEDS: hydrOXYzine PAMOATE 50 MG CAPSULE (FP) PO PRN (22:35)
--- NOTE | 2018-03-08 22:36 | EKG ---
Test Reason : Blood Pressure : / mmHG Vent. Rate : 073 BPM Atrial Rate : 073 BPM P-R Int : 170 ms QRS Dur : 090 ms QT Int : 404 ms P-R-T Axes : 051 077 054 degrees QTc Int : 445 ms NORMAL SINUS RHYTHM NORMAL ECG WHEN COMPARED WITH ECG OF 03-MAR-2017 06:10, NO SIGNIFICANT CHANGE WAS FOUND Confirmed by DAMION MICHAUD MD ([id number]) on 03/08/2018 10:35:41 PM Referred By: Confirmed By:DAMION MICHAUD MD
[2018-03-08] MEDS: IBUPROFEN 400 MG TABLET (FP) PO PRN (22:37)
[2018-03-09] MEDS: diazePAM 5 MG TABLET PO PRN ×3 (04:37→13:25)
[2018-03-09] MEDS: BACITRACIN 0.9 GM PACKET TP SCH ×3 (06:14→22:12)
[2018-03-09] MEDS: METHADONE HCL 5 MG TABLET (FOR DETOX USE ONLY) PO SCH (10:07)
[2018-03-09] MEDS: diazePAM 5 MG TABLET PO SCH ×2 (10:08→22:12)
[2018-03-09] MEDS: PRENATAL VITAMINS W/ FOLIC ACID TABLET (FP) PO SCH (10:10)
[2018-03-09] MEDS: IBUPROFEN 400 MG TABLET (FP) PO PRN (13:26)
--- NOTE | 2018-03-09 16:07 | PN ---
[facility] Progress Note (SOAP) Subjective: body ache joints pain muscle cramp sweat tremor Objective: 03/09/18 16:05 Vital Signs Temperature 97.7 F 03/09/18 13:15 Pulse Rate 77 03/09/18 13:15 Respiratory Rate 18 03/09/18 13:15 Blood Pressure 144/87 03/09/18 13:15 O2 Sat by Pulse Oximetry (%) Laboratory Last Values WBC 5.8 K/mm3 (4.0-10.0) 03/07/18 05:40 RBC 4.47 M/mm3 (4.00-5.60) 03/07/18 05:40 Hgb 13.4 GM/dL (11.7-16.9) 03/07/18 05:40 Hct 39.0 % (35.4-49) 03/07/18 05:40 MCV 87.3 fl (80-96) 03/07/18 05:40 MCH 30.1 pg (25.7-33.7) 03/07/18 05:40 MCHC 34.4 g/dl (32.0-35.9) 03/07/18 05:40 RDW 13.1 % (11.9-15.9) 03/07/18 05:40 Plt Count 288 K/MM3 (134-434) D 03/07/18 05:40 MPV 8.9 fl (7.5-11.1) 03/07/18 05:40 Sodium 143 mmol/L (136-145) 03/07/18 05:40 Potassium 4.4 mmol/L (3.5-5.1) 03/07/18 05:40 Chloride 108 mmol/L (98-107) H 03/07/18 05:40 Carbon Dioxide 22 mmol/L (21-32) 03/07/18 05:40 Anion Gap 13 MMOL/L (8-16) 03/07/18 05:40 BUN 8 mg/dL (7-18) 03/07/18 05:40 Creatinine 0.9 mg/dL (0.55-1.3) 03/07/18 05:40 Creat Clearance w eGFR > 60 (>60) 03/07/18 05:40 Random Glucose 99 mg/dL (74-106) 03/07/18 05:40 Calcium 8.8 mg/dL (8.5-10.1) 03/07/18 05:40 Total Bilirubin 0.4 mg/dL (0.2-1.0) 03/07/18 05:40 AST 16 U/L (15-37) 03/07/18 05:40 ALT 18 U/L (13-61) 03/07/18 05:40 Alkaline Phosphatase 61 U/L (45-117) 03/07/18 05:40 Total Protein 7.5 g/dl (6.4-8.2) 03/07/18 05:40 Albumin 4.0 g/dl (3.4-5.0) 03/07/18 05:40 Urine Color Yellow 03/07/18 09:00 Urine Appearance Clear 03/07/18 09:00 Urine pH 7.0 (5.0-8.0) D 03/07/18 09:00 Ur Specific [place] 1.016 (1.001-1.035) 03/07/18 09:00 Urine Protein Negative (NEGATIVE) 03/07/18 09:00 Urine Glucose (UA) Negative (NEGATIVE) 03/07/18 09:00 Urine Ketones Negative (NEGATIVE) 03/07/18 09:00 Urine Blood Negative (NEGATIVE) 03/07/18 09:00 Urine Nitrite Negative (NEGATIVE) 03/07/18 09:00 Urine Bilirubin Negative (<2.0 mg/dL) 03/07/18 09:00 Urine Urobilinogen Negative mg/dL (0.2-1.0) 03/07/18 09:00 Ur Leukocyte Esterase Negative (NEGATIVE) 03/07/18 09:00 RPR Titer Nonreactive (NONREACTIVE) 03/07/18 05:40 HIV 1&2 Antibody Screen Negative 03/07/18 05:40 HIV P24 Antigen Negative 03/07/18 05:40 lab noted Assessment: 03/09/18 16:06 withdrawal sx Plan: continue detox
[2018-03-09] MEDS: hydrOXYzine PAMOATE 50 MG CAPSULE (FP) PO PRN ×2 (17:50→22:13)
[2018-03-09] MEDS: MAGNESIUM HYDROX 2400MG/30ML ORAL SUSPENSION 30 ML CUP PO PRN (19:07)
[2018-03-09] MEDS: THIAMINE HCL 100 MG TABLET (FP) PO SCH (22:11)
[2018-03-09] MEDS: MELATONIN 5 MG TABLETS PO PRN (22:12)
[2018-03-10] MEDS: hydrOXYzine PAMOATE 50 MG CAPSULE (FP) PO PRN ×5 (03:44→22:16)
[2018-03-10] MEDS: BACITRACIN 0.9 GM PACKET TP SCH ×3 (05:21→22:16)
[2018-03-10] MEDS: IBUPROFEN 400 MG TABLET (FP) PO PRN ×2 (08:50→17:43)
[2018-03-10] MEDS ORDERED: METHADONE HCL 10 MG TABLET (FOR DETOX USE ONLY) PO SCH (10:00)
[2018-03-10] MEDS ORDERED: diazePAM 5 MG TABLET PO SCH (10:00)
--- NOTE | 2018-03-10 10:18 | PN ---
[facility] Progress Note (SOAP) Subjective: feeling better no tremor sleep better at night less sweat no body aches Objective: 03/10/18 10:17 Vital Signs Temperature 97.7 F 03/10/18 09:54 Pulse Rate 81 03/10/18 09:54 Respiratory Rate 18 03/10/18 09:54 Blood Pressure 145/84 03/10/18 09:54 O2 Sat by Pulse Oximetry (%) Laboratory Last Values WBC 5.8 K/mm3 (4.0-10.0) 03/07/18 05:40 RBC 4.47 M/mm3 (4.00-5.60) 03/07/18 05:40 Hgb 13.4 GM/dL (11.7-16.9) 03/07/18 05:40 Hct 39.0 % (35.4-49) 03/07/18 05:40 MCV 87.3 fl (80-96) 03/07/18 05:40 MCH 30.1 pg (25.7-33.7) 03/07/18 05:40 MCHC 34.4 g/dl (32.0-35.9) 03/07/18 05:40 RDW 13.1 % (11.9-15.9) 03/07/18 05:40 Plt Count 288 K/MM3 (134-434) D 03/07/18 05:40 MPV 8.9 fl (7.5-11.1) 03/07/18 05:40 Sodium 143 mmol/L (136-145) 03/07/18 05:40 Potassium 4.4 mmol/L (3.5-5.1) 03/07/18 05:40 Chloride 108 mmol/L (98-107) H 03/07/18 05:40 Carbon Dioxide 22 mmol/L (21-32) 03/07/18 05:40 Anion Gap 13 MMOL/L (8-16) 03/07/18 05:40 BUN 8 mg/dL (7-18) 03/07/18 05:40 Creatinine 0.9 mg/dL (0.55-1.3) 03/07/18 05:40 Creat Clearance w eGFR > 60 (>60) 03/07/18 05:40 Random Glucose 99 mg/dL (74-106) 03/07/18 05:40 Calcium 8.8 mg/dL (8.5-10.1) 03/07/18 05:40 Total Bilirubin 0.4 mg/dL (0.2-1.0) 03/07/18 05:40 AST 16 U/L (15-37) 03/07/18 05:40 ALT 18 U/L (13-61) 03/07/18 05:40 Alkaline Phosphatase 61 U/L (45-117) 03/07/18 05:40 Total Protein 7.5 g/dl (6.4-8.2) 03/07/18 05:40 Albumin 4.0 g/dl (3.4-5.0) 03/07/18 05:40 Urine Color Yellow 03/07/18 09:00 Urine Appearance Clear 03/07/18 09:00 Urine pH 7.0 (5.0-8.0) D 03/07/18 09:00 Ur Specific [place] 1.016 (1.001-1.035) 03/07/18 09:00 Urine Protein Negative (NEGATIVE) 03/07/18 09:00 Urine Glucose (UA) Negative (NEGATIVE) 03/07/18 09:00 Urine Ketones Negative (NEGATIVE) 03/07/18 09:00 Urine Blood Negative (NEGATIVE) 03/07/18 09:00 Urine Nitrite Negative (NEGATIVE) 03/07/18 09:00 Urine Bilirubin Negative (<2.0 mg/dL) 03/07/18 09:00 Urine Urobilinogen Negative mg/dL (0.2-1.0) 03/07/18 09:00 Ur Leukocyte Esterase Negative (NEGATIVE) 03/07/18 09:00 RPR Titer Nonreactive (NONREACTIVE) 03/07/18 05:40 HIV 1&2 Antibody Screen Negative 03/07/18 05:40 HIV P24 Antigen Negative 03/07/18 05:40 lab noted Assessment: 03/10/18 10:18 mild withdrawal sx Plan: medically supervised detox
[2018-03-10] MEDS: PRENATAL VITAMINS W/ FOLIC ACID TABLET (FP) PO SCH (10:21)
[2018-03-10] MEDS: THIAMINE HCL 100 MG TABLET (FP) PO SCH (22:16)
[2018-03-10] MEDS: MELATONIN 5 MG TABLETS PO PRN (22:16)
[2018-03-11] MEDS: hydrOXYzine PAMOATE 50 MG CAPSULE (FP) PO PRN ×2 (02:38→09:00)
[2018-03-11] MEDS: IBUPROFEN 400 MG TABLET (FP) PO PRN (02:38)
[2018-03-11] MEDS: BACITRACIN 0.9 GM PACKET TP SCH (05:41)
[2018-03-11] MEDS ORDERED: METHADONE HCL 5 MG TABLET (FOR DETOX USE ONLY) PO SCH (06:00)
[2018-03-11 06:36] VITALS: TEMP 97.9
--- NOTE | 2018-03-11 09:13 | PN ---
[facility] Progress Note (SOAP) Subjective: I'm better Vital Signs Temperature 97.9 F 03/11/18 06:00 Pulse Rate 60 03/11/18 06:00 Respiratory Rate 18 03/11/18 06:00 Blood Pressure 116/63 03/11/18 06:00 O2 Sat by Pulse Oximetry (%) Laboratory Tests 03/07/18 03/07/18 03/07/18 05:40 05:40 05:40 WBC 5.8 RBC 4.47 Hgb 13.4 Hct 39.0 MCV 87.3 MCH 30.1 MCHC 34.4 RDW 13.1 Plt Count 288 D MPV 8.9 Sodium 143 Potassium 4.4 Chloride 108 H Carbon Dioxide 22 Anion Gap 13 BUN 8 Creatinine 0.9 Creat Clearance w eGFR > 60 Random Glucose 99 Calcium 8.8 Total Bilirubin 0.4 AST 16 ALT 18 Alkaline Phosphatase 61 Total Protein 7.5 Albumin 4.0 Urine Color Urine Appearance Urine pH Ur Specific [place] Urine Protein Urine Glucose (UA) Urine Ketones Urine Blood Urine Nitrite Urine Bilirubin Urine Urobilinogen Ur Leukocyte Esterase RPR Titer HIV 1&2 Antibody Screen Negative HIV P24 Antigen Negative 03/07/18 03/07/18 05:40 09:00 WBC RBC Hgb Hct MCV MCH MCHC RDW Plt Count MPV Sodium Potassium Chloride Carbon Dioxide Anion Gap BUN Creatinine Creat Clearance w eGFR Random Glucose Calcium Total Bilirubin AST ALT Alkaline Phosphatase Total Protein Albumin Urine Color Yellow Urine Appearance Clear Urine pH 7.0 D Ur Specific [place] 1.016 Urine Protein Negative Urine Glucose (UA) Negative Urine Ketones Negative Urine Blood Negative Urine Nitrite Negative Urine Bilirubin Negative Urine Urobilinogen Negative Ur Leukocyte Esterase Negative RPR Titer Nonreactive HIV 1&2 Antibody Screen HIV P24 Antigen pt aox3 in nad ambulating Assessment: 03/11/18 09:12 detox completed Plan: d/c today to home increase fluids
--- NOTE | 2018-03-11 09:15 | DS ---
[facility] Detox Discharge Summary Admission Date: 03/06/18 Discharge Date: 03/11/18 - History Present History: Alcohol Dependence, Cocaine Dependence, Opioid Dependence - Physical Exam Results Vital Signs: Vital Signs Temperature 97.9 F 03/11/18 06:00 Pulse Rate 60 03/11/18 06:00 Respiratory Rate 18 03/11/18 06:00 Blood Pressure 116/63 03/11/18 06:00 O2 Sat by Pulse Oximetry (%) - Treatment Hospital Course: Detox Protocol Followed, Detoxed Safely, Responded well, Discharged Condition Good - Medication Discharge Medications: Ambulatory Orders NK [No Known Home Medication] 03/02/17 - Diagnosis (1) Alcohol dependence with uncomplicated withdrawal Current Visit: Yes Status: Chronic (2) Opioid dependence with withdrawal Current Visit: Yes Status: Chronic (3) Uncomplicated sedative, hypnotic or anxiolytic withdrawal Current Visit: Yes Status: Chronic (4) Depressed affect Current Visit: Yes Status: Suspected (5) Cocaine dependence, uncomplicated Current Visit: Yes Status: Chronic (6) Low back pain Current Visit: No Status: Acute Qualifiers: Chronicity: unspecified - AMA Did Patient Leave Against Medical Advice: No
[2018-03-11] MEDS: PRENATAL VITAMINS W/ FOLIC ACID TABLET (FP) PO SCH (09:35)
[2018-03-11 09:38] VITALS: BP 135/86; PULSE 70
== END 2018-03-11 09:45 | disposition home or self-care (01) | DRG 773 ==
LOC: YASAS 09:35 → Y6N 15:44
PROC: HZ2ZZZZ Detoxification Services for Substance Abuse Treatment (ICD-10-PCS; principal; 2018-03-06)
DX: F11.23 Opioid dependence with withdrawal (principal); F10.230 Alcohol dependence with withdrawal, uncomplicated; F14.20 Cocaine dependence, uncomplicated; F13.230 Sedative, hypnotic or anxiolytic dependence with withdrawal, uncomplicated; R45.89 Other symptoms and signs involving emotional state; K21.9 Gastro-esophageal reflux disease without esophagitis; M54.5 Low back pain
CPT/HCPCS: 36415; 80053; 81003; 85027; 86593; 87389; 93005; 93010

== ENCOUNTER 2018-10-03 22:40 | Inpatient (IN) | payer OTHER ==
[2018-10-03 23:19] VITALS: BMI 26.6
--- NOTE | 2018-10-03 23:50 | HP ---
COWS - Scale Resting Pulse: 1= [place] 81-100 Sweatin=Flushed/Facial Moisture Restless Observation: 0= Sits Still Pupil Size: 0= Normal to Room Light Bone or Joint Aches: 4=Acute Joint/Muscle Pain Runny Nose/ Eye Tearin= Runny Nose/Eyes GI Upset > 30mins: 1= Stomach Cramp Tremor Observation: 2= Slight Tremor Visible Yawning Observation: 0= None Anxiety or Irritability: 4=Extreme Anxiety Goose Flesh Skin: 0=Smooth Skin COWS Score: 16 CIWA Score - Admission Criteria OAS Guidelines: Admission for Medically Managed Detox: Requires at least one of the followin. CIWA greater than 12 2. Seizures within the past 24 hours 3. Delirium tremens within the past 24 hours 4. Hallucinations within the past 24 hours 5. Acute intervention needed for co occurring medical disorder 6. Acute intervention needed for co occurring psychiatric disorder 7. Severe withdrawal that cannot be handled at a lower level of care (continued vomiting, continued diarrhea, abnormal vital signs) requiring intravenous medication and/or fluids 8. Admission ROS [facility] Chief Complaint: Heroin withdrawal symptoms Allergies/Adverse Reactions: Allergies Allergy/AdvReac Type Severity Reaction Status Date / Time No Known Drug Allergies Allergy Verified 10/03/18 23:04 History of Present Illness: 33 years old male with 5 years of heroin dependence is seeking admission to detox. Patient has been in previous detox a year ago here and reports a year of sobriety. He reports medical history of GERD, low back pain and depression. He reports suicide attempt at age 16 and denies suicidal ideation at this time. Patient's urine toxicology was not not positive for benzo. as patient reports that he buys Xanax from the streets Exam Limitations: No Limitations - Ebola screening Have you traveled outside of the country in the last 21 days: No (N) Have you had contact with anyone from an Ebola affected area: No Do you have a fever: No - Review of Systems Constitutional: Chills, Loss of Appetite, Changes in sleep EENT: reports: No Symptoms Reported Respiratory: reports: No Symptoms reported Cardiac: reports: No Symptoms Reported GI: reports: Constipated, Poor Appetite, Poor Fluid Intake, Abdominal cramping : reports: No Symptoms Reported Musculoskeletal: reports: Back Pain, Joint Pain, Muscle Pain Integumentary: reports: Dryness, Flushing Neuro: reports: Headache, Tremors Endocrine: reports: No Symptoms Reported Hematology: reports: No Symptoms Reported Psychiatric: reports: Mood/Affect Appropiate, Orientated x3, Depressed Other Systems: Reviewed and Negative Patient History - Patient Medical History Hx Anemia: No Hx Asthma: No Hx Chronic Obstructive Pulmonary Disease (COPD): No Hx Cancer: No Hx Cardiac Disorders: No Hx Congestive Heart Failure: No Hx Hypertension: No Hx Hypercholesterolemia: No Hx Pacemaker: No HX Cerebrovascular Accident: No Hx Seizures: No Hx Dementia: No Hx Diabetes: No Hx Gastrointestinal Disorders: Yes (acid reflux- Not on m edication) Hx Liver Disease: No Hx Genitourinary Disorders: No Hx Sexually Transmitted Disorders: No Hx Renal Disease (ESRD): No Hx Thyroid Disease: No Hx Human Immunodeficiency Virus (HIV): No (Negative 2017) Hx Hepatitis C: No Hx Depression: Yes (Not on medication) Hx Suicide Attempt: No Hx Bipolar Disorder: No Hx Schizophrenia: No - Patient Surgical History Past Surgical History: No - PPD History Previous Implant?: Yes Documented Results: Negative w/proof Date: 03/08/18 Results: 0 mm PPD to be Administered?: No - Reproductive History Patient is a Female of Child Bearing Age (11 -55 yrs old): No (Male) - Smoking Cessation Smoking history: Never smoked Have you smoked in the past 12 months: No Aproximately how many cigarettes per day: 2 Hx Chewing Tobacco Use: No Initiated information on smoking cessation: No - Substance & Tx. History Hx Alcohol Use: No Hx Substance Use: Yes Substance Use Type: Heroin, Opiates Hx Substance Use Treatment: Yes ([facility]) - Substances abused Heroin Substance route: Inhalation Frequency: Daily Amount used: 10 bags Age of first use: 28 Date of last use: 10/03/18 Alprazolam (Xanax) Substance route: Oral Frequency: Daily Amount used: 4mg Age of first use: 21 Date of last use: 10/03/18 Family Disease History - Family Disease History Family Disease History: Diabetes: Mother (METASTATIC OF UNKNOWN ORIGIN- ), Brother, Heart Disease: Father (HTN, RECTAL CA), CA: Father, Mother Admission Physical Exam [facility] - Vital Signs Vital Signs: Vital Signs - 24 hr 10/03/18 23:03 Temperature 98.7 F Pulse Rate 82 Respiratory 19 Rate Blood Pressure 151/94 - Physical General Appearance: Yes: Moderate Distress, Tremorous, Anxious HEENTM: Yes: EOMI, Normal ENT Inspection, Normal Voice, BUDDY Respiratory: Yes: Lungs Clear, Normal Breath Sounds, No Respiratory Distress Neck: Yes: Supple Breast: Yes: Breast Exam Deferred Cardiology: Yes: Regular Rhythm, Regular Rate Abdominal: Yes: Normal Bowel Sounds Genitourinary: Yes: Within Normal Limits Back: Yes: Normal Inspection Musculoskeletal: Yes: Back pain, Muscle Pain Extremities: Yes: Tremors Neurological: Yes: Alert, Normal Mood/Affect Integumentary: Yes: Warm Lymphatic: Yes: Within Normal Limits - Diagnostic (1) GERD (gastroesophageal reflux disease) Current Visit: Yes Status: Chronic (2) Depression Current Visit: Yes Status: Chronic Qualifiers: Depression Type: unspecified Qualified Code(s): F32.9 - Major depressive disorder, single episode, unspecified (3) Low back pain Current Visit: Yes Status: Chronic Qualifiers: Chronicity: unspecified (4) Opioid dependence with withdrawal Current Visit: Yes Status: Chronic Cleared for Admission [facility] - Detox or Rehab [facility] Level of Care: Medically Managed Detox Regimen/Protocol: Methadone Breathalyzer - Breathalyzer Breathalyzer: 0 Urine Drug Screen - Test Device Lot number: [id number] Expiration date: 05/22/20 - Control Is test valid?: Yes - Results Drug screen NEGATIVE: No Urine drug screen results: THC-Marijuana, FEN-Fentanyl, MOP-Opiates, BUP- Suboxone Inpatient Rehab Admission - Rehab Decision to Admit Inpatient rehab admission?: No
[2018-10-04] MEDS ORDERED: MELATONIN 5 MG TABLETS PO PRN (00:01)
[2018-10-04] MEDS ORDERED: MENTHOL/PHENOL 1 EACH UD MM PRN (00:01)
[2018-10-04] MEDS ORDERED: ACETAMINOPHEN 325 MG TABLET (FP) PO PRN ×2 (00:01)
[2018-10-04] MEDS ORDERED: IBUPROFEN 400 MG TABLET (FP) PO PRN (00:01)
[2018-10-04] MEDS ORDERED: MAGNESIUM CITRATE 300 ML BOTTLE PO PRN (00:01)
[2018-10-04] MEDS ORDERED: MAG HYDROX/AL HYDROX/SIMETH 30 ML UNIT-DOSE CUP PO PRN (00:01)
[2018-10-04] MEDS ORDERED: BISMUTH SUBSALICYLATE 524 MG/30 ML UD PO PRN (00:01)
[2018-10-04] MEDS ORDERED: MAGNESIUM HYDROX 2400MG/30ML ORAL SUSPENSION 30 ML CUP PO PRN (00:01)
[2018-10-04] MEDS: hydrOXYzine PAMOATE 25 MG CAPSULE (FP) PO PRN ×2 (00:41→06:45)
[2018-10-04] MEDS: cloNIDine HCL 0.1 MG TABLET PO PRN ×3 (00:41→22:11)
[2018-10-04] MEDS ORDERED: METHADONE HCL 10 MG TABLET (FOR DETOX USE ONLY) PO ONE (00:45)
--- NOTE | 2018-10-04 08:29 | CONSULT ---
[facility] Psychiatric Consult - Data Date of interview: 10/04/18 Admission source: Self-referred Identifying data: Mr Jernigan is a 33 years old single male, unemployed with no source of income, living with family seeking detox treatment for heroin and xanax Substance Abuse History: Reports history of heroin and xanax use. Refer to addiction counselor's summary for further information Medical History: Significant for GERD and low back pain. Smokes 2 cigarettes daily Psychiatric History: Denies history of previous psychiatric treatment. However, reports history of anxiety. He saw SAMIRA Majano on 03/06/18 while in detox in this facility and he was treated with Vistaril 50 mg po Q 4hrs prn for anxiety. Reports history of suicidal attempt by cutting his right wrist at age 13. 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 He said he was taken to ED for sutures but lied about how it happened saying that he acidently cut himself Physical/Sexual Abuse/Trauma History: Denies history of emotional, physical or sexual abuse as well as DV relationship. No service Additional Comment: Reports history of a few misdemeanor arrests. Mental Status Exam - Mental Status Exam Alert and Oriented to: Time, Place, Person Cognitive Function: Fair Patient Appearance: Well Groomed Mood: Depressed, Anxious Affect: Appropriate Patient Behavior: Cooperative Speech Pattern: Clear Voice Loudness: Normal Thought Process: Intact Thought Disorder: Not Present Hallucinations: Denies Suicidal Ideation: Denies Homicidal Ideation: Denies Insight/Judgement: Poor Sleep: Poorly Appetite: Poor Muscle strength/Tone: Normal, Severe Hypotonicity Psychiatric Findings - Problem List ([place] 1, 2,3) (1) Substance induced mood disorder Current Visit: Yes Status: Acute (2) Substance-induced sleep disorder Current Visit: Yes Status: Acute (3) Opioid dependence with withdrawal Current Visit: Yes Status: Acute (4) Uncomplicated sedative, hypnotic or anxiolytic withdrawal Current Visit: No Status: Acute (5) Nicotine dependence Current Visit: Yes Status: Chronic (6) GERD (gastroesophageal reflux disease) Current Visit: Yes Status: Chronic (7) Low back pain Current Visit: Yes Status: Chronic Qualifiers: Chronicity: unspecified - Initial Treatment Plan Initial Treatment Plan: 1) Start Melatonin 10 mg po HS prn for insomnia and Vistaril 50 mg po Q 4hrs prn for anxiety. 2) Continue inpatient detoxification
[2018-10-04] MEDS ORDERED: METHADONE HCL 10 MG TABLET PO ONE (10:00)
[2018-10-04] MEDS: hydrOXYzine PAMOATE 50 MG CAPSULE (FP) PO PRN ×3 (10:18→22:18)
[2018-10-04] MEDS: PRENATAL VITAMINS W/ FOLIC ACID TABLET (FP) PO SCH (10:18)
--- NOTE | 2018-10-04 11:32 | PN ---
[facility] COWS - Scale Resting Pulse: 1= [place] 81-100 Sweatin= Chills/Flushing Restless Observation: 1= Difficult to Sit Still Pupil Size: 1= Pupils >than Normal Bone or Joint Aches: 2= Severe Diffuse Aches Runny Nose/ Eye Tearin= Nasal Congestion GI Upset > 30mins: 1= Stomach Cramp Tremor Observation of Outstretched Hands: 1= Tremor [place], Not Seen Yawning Observation: 1= 1-2x During Session Anxiety or Irritability: 2=Irritable/Anxious Goose Flesh Skin: 0=Smooth Skin COWS Score: 12 [facility] Progress Note (SOAP) Subjective: trouble sleep at night order seroquel 50 mg po x 1 patient had methadone 20 mg up arrived to detox unit, patient tolerated 20 mg methadone well patient is going to have 30 mg of methadone tomorrow additional 10 mg methadone today Objective: 10/04/18 11:34 Vital Signs Temperature 98.8 F 10/04/18 09:28 Pulse Rate 89 10/04/18 09:28 Respiratory Rate 18 10/04/18 09:28 Blood Pressure 124/75 10/04/18 09:28 O2 Sat by Pulse Oximetry (%) 10/04/18 11:34 lab will be drawn tomorrow Assessment: 10/04/18 11:35 withdrawal sx Plan: continue detox
[2018-10-04] MEDS: MELATONIN 5 MG TABLETS PO PRN (22:09)
[2018-10-04] MEDS: THIAMINE HCL 100 MG TABLET (FP) PO SCH (22:09)
[2018-10-05] MEDS: hydrOXYzine PAMOATE 50 MG CAPSULE (FP) PO PRN ×4 (03:19→22:14)
[2018-10-05] MEDS: cloNIDine HCL 0.1 MG TABLET PO PRN ×2 (05:13→16:39)
[2018-10-05] MEDS: METHOCARBAMOL 500 MG TABLET PO PRN ×2 (05:14→16:39)
--- NOTE | 2018-10-05 09:39 | PN ---
[facility] COWS - Scale Resting Pulse: 0= [place] 80 or Below Sweatin= Chills/Flushing Restless Observation: 0= Sits Still Pupil Size: 1= Pupils >than Normal Bone or Joint Aches: 1= Mild Discomfort Runny Nose/ Eye Tearin= Nasal Congestion GI Upset > 30mins: 1= Stomach Cramp Tremor Observation of Outstretched Hands: 1= Tremor [place], Not Seen Yawning Observation: 1= 1-2x During Session Anxiety or Irritability: 1=Feels Anxious/Irritable Goose Flesh Skin: 3=Piloerection COWS Score: 11 [facility] Progress Note (SOAP) Subjective: patient reporting doing well with methadone regimen discuss medication assisted maintenance treatment program Objective: 10/05/18 09:40 Vital Signs Temperature 96.8 F L 10/05/18 09:03 Pulse Rate 69 10/05/18 09:03 Respiratory Rate 18 10/05/18 09:03 Blood Pressure 111/64 10/05/18 09:03 O2 Sat by Pulse Oximetry (%) 10/05/18 09:41 lab pending Assessment: 10/05/18 09:41 opiate withdrawal sx Plan: continue opiate detox 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
[2018-10-05] MEDS ORDERED: METHADONE HCL 10 MG TABLET (FOR DETOX USE ONLY) PO ONE (10:00)
[2018-10-05 10:04] LABS: HEMATOCRIT 37.6 % (35.4-49); MCH 29.9 pg (25.7-33.7); MCHC 34.7 g/dl (32.0-35.9); MEAN CELL VOLUME 86.3 fl (80-96); MEAN PLT VOLUME 8.3 fl (7.5-11.1); PLATELET COUNT 251 K/MM3 (134-434); RBC 4.36 M/mm3 (4.00-5.60); RDW 13.2 % (11.9-15.9)
[2018-10-05 10:05] LABS: ALBUMIN 3.3 g/dl (3.4-5.0); ALK PHOS 61 U/L (45-117); ANION GAP 5 MMOL/L (8-16); BILIRUBIN,TOTAL 0.3 mg/dL (0.2-1); BLOOD UREA NITROGEN 9 mg/dL (7-18); CALCIUM 8.7 mg/dL (8.5-10.1); CHLORIDE 105 mmol/L (98-107); CO2 26 mmol/L (21-32); GLUCOSE,RANDOM 140 mg/dL (74-106); POTASSIUM 3.8 mmol/L (3.5-5.1); SGOT/AST 10 U/L (15-37); SGPT/ALT 15 U/L (13-61); SODIUM 136 mmol/L (136-145)
[2018-10-05] MEDS: PRENATAL VITAMINS W/ FOLIC ACID TABLET (FP) PO SCH (10:06)
[2018-10-05] MEDS: THIAMINE HCL 100 MG TABLET (FP) PO SCH (22:12)
[2018-10-05] MEDS: MELATONIN 5 MG TABLETS PO PRN (22:14)
[2018-10-06] MEDS: cloNIDine HCL 0.1 MG TABLET PO PRN (04:04)
[2018-10-06] MEDS: hydrOXYzine PAMOATE 50 MG CAPSULE (FP) PO PRN (04:05)
[2018-10-06] MEDS: METHOCARBAMOL 500 MG TABLET PO PRN ×2 (04:05→10:08)
[2018-10-06] MEDS ORDERED: diazePAM 5 MG TABLET PO PRN (09:00)
--- NOTE | 2018-10-06 09:02 | PN ---
BHS COWS - Scale Resting Pulse: 0= [place] 80 or Below Sweatin= Chills/Flushing Restless Observation: 1= Difficult to Sit Still Pupil Size: 0= Normal to Room Light Bone or Joint Aches: 1= Mild Discomfort Runny Nose/ Eye Tearin= Nasal Congestion GI Upset > 30mins: 0= None Tremor Observation of Outstretched Hands: 1= Tremor [place], Not Seen Yawning Observation: 2= >3x During Session Anxiety or Irritability: 2=Irritable/Anxious Goose Flesh Skin: 0=Smooth Skin COWS Score: 9 BHS Progress Note (SOAP) Subjective: patient reporting that clonidine does not work for him and valium did help in the pass discontinue clonidine begin valium prn Objective: 10/06/18 09:43 Vital Signs Temperature 98.1 F 10/06/18 09:22 Pulse Rate 70 10/06/18 09:22 Respiratory Rate 18 10/06/18 09:22 Blood Pressure 117/73 10/06/18 09:22 O2 Sat by Pulse Oximetry (%) Laboratory Last Values WBC 7.0 K/mm3 (4.0-10.0) 10/05/18 07:00 RBC 4.36 M/mm3 (4.00-5.60) 10/05/18 07:00 Hgb 13.0 GM/dL (11.7-16.9) 10/05/18 07:00 Hct 37.6 % (35.4-49) 10/05/18 07:00 MCV 86.3 fl (80-96) 10/05/18 07:00 MCH 29.9 pg (25.7-33.7) 10/05/18 07:00 MCHC 34.7 g/dl (32.0-35.9) 10/05/18 07:00 RDW 13.2 % (11.9-15.9) 10/05/18 07:00 Plt Count 251 K/MM3 (134-434) 10/05/18 07:00 MPV 8.3 fl (7.5-11.1) 10/05/18 07:00 Sodium 136 mmol/L (136-145) 10/05/18 07:00 Potassium 3.8 mmol/L (3.5-5.1) 10/05/18 07:00 Chloride 105 mmol/L (98-107) 10/05/18 07:00 Carbon Dioxide 26 mmol/L (21-32) 10/05/18 07:00 Anion Gap 5 MMOL/L (8-16) L 10/05/18 07:00 BUN 9 mg/dL (7-18) 10/05/18 07:00 Creatinine 1.0 mg/dL (0.55-1.3) 10/05/18 07:00 Creat Clearance w eGFR 86.06 (>60) 10/05/18 07:00 Random Glucose 140 mg/dL (74-106) H 10/05/18 07:00 Calcium 8.7 mg/dL (8.5-10.1) 10/05/18 07:00 Total Bilirubin 0.3 mg/dL (0.2-1) 10/05/18 07:00 AST 10 U/L (15-37) L 10/05/18 07:00 ALT 15 U/L (13-61) 10/05/18 07:00 Alkaline Phosphatase 61 U/L (45-117) 10/05/18 07:00 Total Protein 7.0 g/dl (6.4-8.2) 10/05/18 07:00 Albumin 3.3 g/dl (3.4-5.0) L 10/05/18 07:00 RPR Titer Nonreactive (NONREACTIVE) 10/05/18 07:00 lab noted Assessment: 10/06/18 09:43 opiate withdrawal sx Plan: continue detox
[2018-10-06] MEDS ORDERED: METHADONE HCL 10 MG TABLET (FOR DETOX USE ONLY) PO ONE (10:00)
[2018-10-06] MEDS: PRENATAL VITAMINS W/ FOLIC ACID TABLET (FP) PO SCH (10:07)
[2018-10-06 18:24] LABS: URINE APPEARANCE CLEAR; URINE BILIRUBIN NEGATIVE (NEGATIVE); URINE COLOR DK YELLOW; URINE GLUCOSE (UA) NEGATIVE (NEGATIVE); URINE KETONE TRACE (NEGATIVE); URINE LEUK ESTERASE NEGATIVE (NEGATIVE); URINE NITRITE NEGATIVE (NEGATIVE); URINE PROTEIN NEGATIVE (NEGATIVE); URINE UROBILINOGEN 0.2 mg/dL (0.2-1.0)
[2018-10-06] MEDS: MELATONIN 5 MG TABLETS PO PRN (22:12)
[2018-10-06] MEDS: THIAMINE HCL 100 MG TABLET (FP) PO SCH (22:12)
[2018-10-07] MEDS: hydrOXYzine PAMOATE 50 MG CAPSULE (FP) PO PRN ×3 (01:18→22:27)
[2018-10-07] MEDS: METHOCARBAMOL 500 MG TABLET PO PRN ×2 (01:18→10:03)
[2018-10-07] MEDS ORDERED: METHADONE HCL 10 MG TABLET (FOR DETOX USE ONLY) PO ONE (10:00)
[2018-10-07] MEDS: PRENATAL VITAMINS W/ FOLIC ACID TABLET (FP) PO SCH (10:02)
--- NOTE | 2018-10-07 14:11 | PN ---
BHS COWS - Scale Resting Pulse: 0= [place] 80 or Below Sweatin= Chills/Flushing Restless Observation: 0= Sits Still Pupil Size: 0= Normal to Room Light Bone or Joint Aches: 1= Mild Discomfort Runny Nose/ Eye Tearin= None GI Upset > 30mins: 0= None Tremor Observation of Outstretched Hands: 1= Tremor [place], Not Seen Yawning Observation: 1= 1-2x During Session Anxiety or Irritability: 1=Feels Anxious/Irritable Goose Flesh Skin: 0=Smooth Skin COWS Score: 5 BHS Progress Note (SOAP) Subjective: patient is looking forward to go to [facility] tomorrow morning Objective: 10/07/18 14:13 Vital Signs Temperature 97.2 F L 10/07/18 13:18 Pulse Rate 77 10/07/18 13:18 Respiratory Rate 18 10/07/18 13:18 Blood Pressure 150/96 10/07/18 13:18 O2 Sat by Pulse Oximetry (%) Laboratory Last Values WBC 7.0 K/mm3 (4.0-10.0) 10/05/18 07:00 RBC 4.36 M/mm3 (4.00-5.60) 10/05/18 07:00 Hgb 13.0 GM/dL (11.7-16.9) 10/05/18 07:00 Hct 37.6 % (35.4-49) 10/05/18 07:00 MCV 86.3 fl (80-96) 10/05/18 07:00 MCH 29.9 pg (25.7-33.7) 10/05/18 07:00 MCHC 34.7 g/dl (32.0-35.9) 10/05/18 07:00 RDW 13.2 % (11.9-15.9) 10/05/18 07:00 Plt Count 251 K/MM3 (134-434) 10/05/18 07:00 MPV 8.3 fl (7.5-11.1) 10/05/18 07:00 Sodium 136 mmol/L (136-145) 10/05/18 07:00 Potassium 3.8 mmol/L (3.5-5.1) 10/05/18 07:00 Chloride 105 mmol/L (98-107) 10/05/18 07:00 Carbon Dioxide 26 mmol/L (21-32) 10/05/18 07:00 Anion Gap 5 MMOL/L (8-16) L 10/05/18 07:00 BUN 9 mg/dL (7-18) 10/05/18 07:00 Creatinine 1.0 mg/dL (0.55-1.3) 10/05/18 07:00 Creat Clearance w eGFR 86.06 (>60) 10/05/18 07:00 Random Glucose 140 mg/dL (74-106) H 10/05/18 07:00 Calcium 8.7 mg/dL (8.5-10.1) 10/05/18 07:00 Total Bilirubin 0.3 mg/dL (0.2-1) 10/05/18 07:00 AST 10 U/L (15-37) L 10/05/18 07:00 ALT 15 U/L (13-61) 10/05/18 07:00 Alkaline Phosphatase 61 U/L (45-117) 10/05/18 07:00 Total Protein 7.0 g/dl (6.4-8.2) 10/05/18 07:00 Albumin 3.3 g/dl (3.4-5.0) L 10/05/18 07:00 Urine Color Dk yellow 10/06/18 12:10 Urine Appearance Clear 10/06/18 12:10 Urine pH 6.0 (5.0-8.0) 10/06/18 12:10 Ur Specific [place] 1.025 (1.010-1.035) 10/06/18 12:10 Urine Protein Negative (NEGATIVE) 10/06/18 12:10 Urine Glucose (UA) Negative (NEGATIVE) 10/06/18 12:10 Urine Ketones Trace (NEGATIVE) H 10/06/18 12:10 Urine Blood Negative (NEGATIVE) 10/06/18 12:10 Urine Nitrite Negative (NEGATIVE) 10/06/18 12:10 Urine Bilirubin Negative (NEGATIVE) 10/06/18 12:10 Urine Urobilinogen 0.2 mg/dL (0.2-1.0) 10/06/18 12:10 Ur Leukocyte Esterase Negative (NEGATIVE) 10/06/18 12:10 RPR Titer Nonreactive (NONREACTIVE) 10/05/18 07:00 lab noted Assessment: 10/07/18 14:13 withdrawal sx Plan: continue detox
[2018-10-07] MEDS: THIAMINE HCL 100 MG TABLET (FP) PO SCH (22:26)
[2018-10-07] MEDS: MELATONIN 5 MG TABLETS PO PRN (22:26)
[2018-10-08] MEDS ORDERED: METHADONE HCL 5 MG TABLET (FOR DETOX USE ONLY) PO ONE (06:00)
[2018-10-08 09:22] VITALS: TEMP 98.8
[2018-10-08 09:45] VITALS: BP 132/85; PULSE 88
[2018-10-08] MEDS: PRENATAL VITAMINS W/ FOLIC ACID TABLET (FP) PO SCH (10:43)
--- NOTE | 2018-10-08 11:07 | DS ---
[facility] Detox Discharge Summary Admission Date: 10/03/18 Discharge Date: 10/08/18 - History Present History: Opioid Dependence Additional Comments: 33 years old male admitted on 10/03/18 for opiate withdrawal stabilization completed opiate detox regimen aftercare [facility] Pertinent Past History: bring in medication list and lab report to aftercare appointment - Physical Exam Results Vital Signs: Vital Signs Temperature 98.8 F 10/08/18 09:45 Pulse Rate 88 10/08/18 09:45 Respiratory Rate 18 10/08/18 09:45 Blood Pressure 132/85 10/08/18 09:45 O2 Sat by Pulse Oximetry (%) Pertinent Admission Physical Exam Findings: opiate withdrawal sx Laboratory Last Values WBC 7.0 K/mm3 (4.0-10.0) 10/05/18 07:00 RBC 4.36 M/mm3 (4.00-5.60) 10/05/18 07:00 Hgb 13.0 GM/dL (11.7-16.9) 10/05/18 07:00 Hct 37.6 % (35.4-49) 10/05/18 07:00 MCV 86.3 fl (80-96) 10/05/18 07:00 MCH 29.9 pg (25.7-33.7) 10/05/18 07:00 MCHC 34.7 g/dl (32.0-35.9) 10/05/18 07:00 RDW 13.2 % (11.9-15.9) 10/05/18 07:00 Plt Count 251 K/MM3 (134-434) 10/05/18 07:00 MPV 8.3 fl (7.5-11.1) 10/05/18 07:00 Sodium 136 mmol/L (136-145) 10/05/18 07:00 Potassium 3.8 mmol/L (3.5-5.1) 10/05/18 07:00 Chloride 105 mmol/L (98-107) 10/05/18 07:00 Carbon Dioxide 26 mmol/L (21-32) 10/05/18 07:00 Anion Gap 5 MMOL/L (8-16) L 10/05/18 07:00 BUN 9 mg/dL (7-18) 10/05/18 07:00 Creatinine 1.0 mg/dL (0.55-1.3) 10/05/18 07:00 Creat Clearance w eGFR 86.06 (>60) 10/05/18 07:00 Random Glucose 140 mg/dL (74-106) H 10/05/18 07:00 Calcium 8.7 mg/dL (8.5-10.1) 10/05/18 07:00 Total Bilirubin 0.3 mg/dL (0.2-1) 10/05/18 07:00 AST 10 U/L (15-37) L 10/05/18 07:00 ALT 15 U/L (13-61) 10/05/18 07:00 Alkaline Phosphatase 61 U/L (45-117) 10/05/18 07:00 Total Protein 7.0 g/dl (6.4-8.2) 10/05/18 07:00 Albumin 3.3 g/dl (3.4-5.0) L 10/05/18 07:00 Urine Color Dk yellow 10/06/18 12:10 Urine Appearance Clear 10/06/18 12:10 Urine pH 6.0 (5.0-8.0) 10/06/18 12:10 Ur Specific [place] 1.025 (1.010-1.035) 10/06/18 12:10 Urine Protein Negative (NEGATIVE) 10/06/18 12:10 Urine Glucose (UA) Negative (NEGATIVE) 10/06/18 12:10 Urine Ketones Trace (NEGATIVE) H 10/06/18 12:10 Urine Blood Negative (NEGATIVE) 10/06/18 12:10 Urine Nitrite Negative (NEGATIVE) 10/06/18 12:10 Urine Bilirubin Negative (NEGATIVE) 10/06/18 12:10 Urine Urobilinogen 0.2 mg/dL (0.2-1.0) 10/06/18 12:10 Ur Leukocyte Esterase Negative (NEGATIVE) 10/06/18 12:10 RPR Titer Nonreactive (NONREACTIVE) 10/05/18 07:00 lab noted - Treatment Hospital Course: Detox Protocol Followed, Detoxed Safely, Responded well, Discharged Condition Good, Rehab Referral Accepted Patient has Accepted a Rehab Referral to: [facility] - Medication Discharge Medications: Ambulatory Orders Naloxone HCl [Narcan] 4 mg NS ASDIR PRN 10/05/18 - Diagnosis (1) Opioid dependence with withdrawal Current Visit: Yes Status: Acute (2) Substance induced mood disorder Current Visit: Yes Status: Suspected (3) GERD (gastroesophageal reflux disease) Current Visit: Yes Status: Chronic Qualifiers: Esophagitis presence: without esophagitis Qualified Code(s): K21.9 - Gastro -esophageal reflux disease without esophagitis (4) Nicotine dependence Current Visit: Yes Status: Acute Qualifiers: Nicotine product type: cigarettes Substance use status: in withdrawal Qualified Code(s): F17.213 - Nicotine dependence, cigarettes, with withdrawal - AMA Did Patient Leave Against Medical Advice: No
== END 2018-10-08 11:00 | disposition home or self-care (01) | DRG 773 ==
LOC: YASAS 22:40 → Y3N 23:49
PROVIDERS: ADMIT Surgery; ATTEND Surgery
PROC: HZ2ZZZZ Detoxification Services for Substance Abuse Treatment (ICD-10-PCS; principal; 2018-10-03)
DX: F11.23 Opioid dependence with withdrawal (principal); F13.230 Sedative, hypnotic or anxiolytic dependence with withdrawal, uncomplicated; F17.213 Nicotine dependence, cigarettes, with withdrawal; F19.24 Other psychoactive substance dependence with psychoactive substance-induced mood disorder; F19.282 Other psychoactive substance dependence with psychoactive substance-induced sleep disorder; F32.9 Major depressive disorder, single episode, unspecified; K21.9 Gastro-esophageal reflux disease without esophagitis; M54.5 Low back pain; G89.29 Other chronic pain
CPT/HCPCS: 36415; 80053; 81003; 85027; 86593; J0735

== ENCOUNTER 2018-12-17 18:09 | Inpatient (IN) | payer OTHER ==
[2018-12-17 18:44] VITALS: BMI 25.0
--- NOTE | 2018-12-17 20:52 | HP ---
COWS - Scale Resting Pulse: 1= [place] 81-100 Sweatin= Chills/Flushing Restless Observation: 1= Difficult to Sit Still Pupil Size: 1= Pupils >than Normal Bone or Joint Aches: 2= Severe Diffuse Aches Runny Nose/ Eye Tearin= Runny Nose/Eyes GI Upset > 30mins: 2= Nausea/Diarrhea Tremor Observation: 1= Tremor [place], Not Seen Yawning Observation: 1= 1-2x During Session Anxiety or Irritability: 2=Irritable/Anxious Goose Flesh Skin: 0=Smooth Skin COWS Score: 14 CIWA Score Nausea/Vomitin Muscle Tremors: 2 Anxiety: 3 Agitation: 0-Normal Activity Paroxysmal Sweats: 2 Orientation: 0-Oriented Tacttile Disturbances: 1-Very Mild Itch/Numbness Auditory Disturbances: 1-Very Mild Visual Disturbances: 1-Very Mild Sensitivity Headache: 3-Moderate CIWA-Ar Total Score: 16 - Admission Criteria OASAS Guidelines: Admission for Medically Managed Detox: Requires at least one of the followin. CIWA greater than 12 2. Seizures within the past 24 hours 3. Delirium tremens within the past 24 hours 4. Hallucinations within the past 24 hours 5. Acute intervention needed for co occurring medical disorder 6. Acute intervention needed for co occurring psychiatric disorder 7. Severe withdrawal that cannot be handled at a lower level of care (continued vomiting, continued diarrhea, abnormal vital signs) requiring intravenous medication and/or fluids 8. Patient presents the following: CIWA greater than 12 Admission Criteria Met: Admission criteria met Admission ROS [facility] - [facility] Chief Complaint: benzo, alcohol and opioid withdrawal symptoms Allergies/Adverse Reactions: Allergies Allergy/AdvReac Type Severity Reaction Status Date / Time No Known Drug Allergies Allergy Verified 12/17/18 18:35 History of Present Illness: 33 yo male with hx of heroin, xanax, marijuana and alcohol dependence is here seeking inpatient detox, patient is known to the program, this is one of multiple admission, patient is self reffered. Longest period of sobriety eight months while in [facility] PMHX: GERD, low back pain Psych:depression. Hx of suicide attempt at age 16, denies SI/HI Reports hx of unintentional overdose x 2 with last episode two months ago Denies hx of seizures Exam Limitations: No Limitations - Ebola screening Have you traveled outside of the country in the last 21 days: No (N) Have you had contact with anyone from an Ebola affected area: No Do you have a fever: No - Review of Systems Constitutional: Chills, Weakness, Unintentional Wgt. Loss EENT: reports: Nose Congestion Respiratory: reports: No Symptoms reported Cardiac: reports: No Symptoms Reported GI: reports: Nausea, Poor Appetite, Poor Fluid Intake : reports: No Symptoms Reported Musculoskeletal: reports: Back Pain Integumentary: reports: No Symptoms Reported Neuro: reports: Headache, Dizziness Endocrine: reports: No Symptoms Reported Hematology: reports: No Symptoms Reported Psychiatric: reports: Orientated x3, Anxious Other Systems: Reviewed and Negative Patient History - Patient Medical History Hx Anemia: No Hx Asthma: No Hx Chronic Obstructive Pulmonary Disease (COPD): No Hx Cancer: No Hx Cardiac Disorders: No Hx Congestive Heart Failure: No Hx Hypertension: No Hx Hypercholesterolemia: No Hx Pacemaker: No HX Cerebrovascular Accident: No Hx Seizures: No Hx Dementia: No Hx Diabetes: No Hx Gastrointestinal Disorders: Yes (acid reflux- Not on m edication) Hx Liver Disease: No Hx Genitourinary Disorders: No Hx Sexually Transmitted Disorders: No Hx Renal Disease (ESRD): No Hx Thyroid Disease: No Hx Human Immunodeficiency Virus (HIV): No (Negative 2017) Hx Hepatitis C: No Hx Depression: Yes (Not on medication) Hx Suicide Attempt: No Hx Bipolar Disorder: No Hx Schizophrenia: No - Patient Surgical History Past Surgical History: No Hx Neurologic Surgery: No Hx Cataract Extraction: No Hx Cardiac Surgery: No Hx Lung Surgery: No Hx Breast Surgery: No Hx Breast Biopsy: No Hx Abdominal Surgery: No Hx Appendectomy: No Hx Cholecystectomy: No Hx Genitourinary Surgery: No Hx Section: No Hx Orthopedic Surgery: No Anesthesia Reaction: No - PPD History Previous Implant?: No Documented Results: Negative w/proof Date: 03/08/18 Results: 0 mm PPD to be Administered?: No - Smoking Cessation Smoking history: Never smoked Have you smoked in the past 12 months: No Hx Chewing Tobacco Use: No Initiated information on smoking cessation: No - Substance & Tx. History Hx Alcohol Use: Yes Hx Substance Use: Yes Substance Use Type: Alcohol, Heroin, Marijuana, Opiates, Tranquilizers Hx Substance Use Treatment: Yes (does not recall ) - Substances abused Heroin Substance route: Inhalation Frequency: Daily Amount used: 1.5 gram Age of first use: 28 Date of last use: 12/16/18 Alprazolam (Xanax) Substance route: Oral Frequency: Daily Amount used: 4mg Age of first use: 21 Date of last use: 12/16/18 Alcohol Substance route: Oral Frequency: Daily Amount used: liquor- 3 pints, beer- 1 six pack Age of first use: 17 Date of last use: 12/17/18 Family Disease History - Family Disease History Family Disease History: Diabetes: Mother (METASTATIC OF UNKNOWN ORIGIN- ), Brother, Heart Disease: Father (HTN, RECTAL CA), CA: Father, Mother Admission Physical Exam S - Vital Signs Vital Signs: Vital Signs - 24 hr 12/17/18 18:29 Temperature 97.6 F Pulse Rate 100 H Respiratory 20 Rate Blood Pressure 161/105 H - Physical General Appearance: Yes: Appropriately Dressed, Mild Distress, Thin, Tremorous, Anxious HEENTM: Yes: EOMI, Hearing grossly Normal, Normal ENT Inspection, BUDDY, Pharynx Normal, Tm's normal Respiratory: Yes: Chest Non-Tender, Lungs Clear, Normal Breath Sounds, No Respiratory Distress, No Accessory Muscle Use Neck: Yes: Within Normal Limits Breast: Yes: Breast Exam Deferred Cardiology: Yes: Regular Rhythm, Regular Rate Abdominal: Yes: Normal Bowel Sounds, Non Tender, Flat, Soft Genitourinary: Yes: Within Normal Limits Back: Yes: Normal Inspection Musculoskeletal: Yes: full range of Motion, Gait Steady, Pelvis Stable Extremities: Yes: Normal Capillary Refill, Normal Inspection, Normal Range of Motion, Non-Tender Neurological: Yes: lease attendant II-XII NML intact, Fully Oriented, Alert, Motor Strength 5/5, Depressed Affect Integumentary: Yes: Normal Color, Warm, Diaphoresis, Other (abrasion on the left wrist, no drainage) Lymphatic: Yes: Within Normal Limits - Diagnostic (1) Opioid dependence with withdrawal Current Visit: Yes Status: Acute (2) Uncomplicated sedative, hypnotic or anxiolytic withdrawal Current Visit: Yes Status: Acute (3) Alcohol dependence with uncomplicated withdrawal Current Visit: Yes Status: Chronic (4) GERD (gastroesophageal reflux disease) Current Visit: Yes Status: Chronic Qualifiers: Esophagitis presence: without esophagitis Qualified Code(s): K21.9 - Gastro -esophageal reflux disease without esophagitis (5) Low back pain Current Visit: Yes Status: Chronic Qualifiers: Chronicity: unspecified (6) Marijuana dependence Current Visit: Yes Status: Acute Cleared for Admission [facility] - Detox or Rehab [facility] Level of Care: Medically Managed Detox Regimen/Protocol: Methadone/Valium Breathalyzer - Breathalyzer Breathalyzer: 0 Urine Drug Screen - Test Device Lot number: [id number] Expiration date: 08/20/20 - Control Is test valid?: Yes - Results Drug screen NEGATIVE: No Urine drug screen results: THC-Marijuana, FEN-Fentanyl, MOP-Opiates, BZO- Benzodiazepines Inpatient Rehab Admission - Rehab Decision to Admit Inpatient rehab admission?: No
[2018-12-17] MEDS ORDERED: IBUPROFEN 400 MG TABLET (FP) PO PRN (20:54)
[2018-12-17] MEDS ORDERED: METHOCARBAMOL 500 MG TABLET PO PRN (20:54)
[2018-12-17] MEDS ORDERED: ACETAMINOPHEN 325 MG TABLET (FP) PO PRN ×2 (20:54)
[2018-12-17] MEDS ORDERED: MAGNESIUM CITRATE 300 ML BOTTLE PO PRN (20:54)
[2018-12-17] MEDS ORDERED: MENTHOL/PHENOL 1 EACH UD MM PRN (20:54)
[2018-12-17] MEDS ORDERED: MAG HYDROX/AL HYDROX/SIMETH 30 ML UNIT-DOSE CUP PO PRN (20:54)
[2018-12-17] MEDS ORDERED: MELATONIN 5 MG TABLETS PO PRN (20:54)
[2018-12-17] MEDS ORDERED: BISMUTH SUBSALICYLATE 524 MG/30 ML UD PO PRN (20:54)
[2018-12-17] MEDS ORDERED: MAGNESIUM HYDROX 2400MG/30ML ORAL SUSPENSION 30 ML CUP PO PRN (20:54)
[2018-12-17] MEDS: diazePAM 5 MG TABLET PO SCH (22:10)
[2018-12-17] MEDS: THIAMINE HCL 100 MG TABLET (FP) PO SCH (22:10)
[2018-12-17] MEDS ORDERED: METHADONE HCL 10 MG TABLET (FOR DETOX USE ONLY) PO ONE (23:00)
[2018-12-18] MEDS: diazePAM 5 MG TABLET PO SCH ×3 (05:46→22:16)
[2018-12-18] MEDS ORDERED: METHADONE HCL 10 MG TABLET (FOR DETOX USE ONLY) PO ONE (10:00)
[2018-12-18] MEDS: PRENATAL VITAMINS W/ FOLIC ACID TABLET (FP) PO SCH (10:42)
[2018-12-18] MEDS: diazePAM 5 MG TABLET PO PRN ×3 (10:43→19:49)
[2018-12-18 11:44] LABS: HEMATOCRIT 36.8 % (35.4-49); HEMOGLOBIN 12.5 GM/dL (11.7-16.9); MCH 29.2 pg (25.7-33.7); MEAN CELL VOLUME 85.9 fl (80-96); MEAN PLT VOLUME 8.1 fl (7.5-11.1); PLATELET COUNT 250 K/MM3 (134-434); RBC 4.29 M/mm3 (4.00-5.60); RDW 13.8 % (11.9-15.9); WHITE BLOOD COUNT 5.9 K/mm3 (4.0-10.0)
--- NOTE | 2018-12-18 12:04 | PN ---
[facility] CIWA - CIWA Score Nausea/Vomitin-No Nausea/No Vomiting Muscle Tremors: 3 Anxiety: 3 Agitation: 3 Paroxysmal Sweats: 3 Orientation: 0-Oriented Tacttile Disturbances: 0-None Auditory Disturbances: 0-None Visual Disturbances: 0-None Headache: 0-None Present CIWA-Ar Total Score: 12 BHS COWS - Scale Resting Pulse: 0= [place] 80 or Below Sweatin=Flushed/Facial Moisture Restless Observation: 1= Difficult to Sit Still Pupil Size: 0= Normal to Room Light Bone or Joint Aches: 1= Mild Discomfort Runny Nose/ Eye Tearin= Nasal Congestion GI Upset > 30mins: 2= Nausea/Diarrhea Tremor Observation of Outstretched Hands: 2= Slight Tremor Visible Yawning Observation: 1= 1-2x During Session Anxiety or Irritability: 2=Irritable/Anxious Goose Flesh Skin: 3=[place] COWS Score: 15 [facility] Progress Note (SOAP) Subjective: shakes sweats body aches interrupted sleep muscle cramping irritable agitation Objective: 12/18/18 12:04 Vital Signs Temperature 97.5 F L 12/18/18 09:26 Pulse Rate 53 L 12/18/18 09:26 Respiratory Rate 17 12/18/18 09:26 Blood Pressure 130/73 12/18/18 09:26 O2 Sat by Pulse Oximetry (%) Laboratory Tests 12/18/18 07:00 WBC 5.9 RBC 4.29 Hgb 12.5 Hct 36.8 MCV 85.9 MCH 29.2 MCHC 34.0 RDW 13.8 Plt Count 250 MPV 8.1 labs pending aaox3 ambulating no acute distress Assessment: 12/18/18 12:04 withdrawal sx Plan: continue detox increase fluids pending labs
[2018-12-18 12:08] LABS: ALBUMIN 3.1 g/dl (3.4-5.0); BILIRUBIN,TOTAL 0.6 mg/dL (0.2-1); BLOOD UREA NITROGEN 8.2 mg/dL (7-18); CALCIUM 8.7 mg/dL (8.5-10.1); CREATININE 0.9 mg/dL (0.55-1.3); POTASSIUM 3.8 mmol/L (3.5-5.1); TOT PROT 6.2 g/dl (6.4-8.2)
[2018-12-18] MEDS: cloNIDine HCL 0.1 MG TABLET PO PRN ×2 (14:30→23:25)
[2018-12-18] MEDS: THIAMINE HCL 100 MG TABLET (FP) PO SCH (22:15)
[2018-12-19] MEDS: diazePAM 5 MG TABLET PO PRN ×4 (00:27→23:52)
[2018-12-19] MEDS ORDERED: METHADONE HCL 10 MG TABLET (FOR DETOX USE ONLY) PO ONE (10:00)
[2018-12-19] MEDS: diazePAM 5 MG TABLET PO SCH ×2 (10:19→22:04)
[2018-12-19] MEDS: PRENATAL VITAMINS W/ FOLIC ACID TABLET (FP) PO SCH (10:19)
--- NOTE | 2018-12-19 11:05 | PN ---
S CIWA - CIWA Score Nausea/Vomitin-No Nausea/No Vomiting Muscle Tremors: 2 Anxiety: 2 Agitation: 0-Normal Activity Paroxysmal Sweats: 4-Forehead w/Sweat Beads Orientation: 0-Oriented Tacttile Disturbances: 0-None Auditory Disturbances: 0-None Visual Disturbances: 0-None Headache: 0-None Present CIWA-Ar Total Score: 8 BHS COWS - Scale Resting Pulse: 0= [place] 80 or Below Sweatin= Chills/Flushing Restless Observation: 1= Difficult to Sit Still Pupil Size: 0= Normal to Room Light Bone or Joint Aches: 2= Severe Diffuse Aches Runny Nose/ Eye Tearin= None GI Upset > 30mins: 0= None Tremor Observation of Outstretched Hands: 2= Slight Tremor Visible Yawning Observation: 2= >3x During Session Anxiety or Irritability: 2=Irritable/Anxious Goose Flesh Skin: 0=Smooth Skin COWS Score: 10 S Progress Note (SOAP) Subjective: c/o sweats, irritability, anxiety, and headache. Objective: 12/19/18 11:04 Vital Signs 12/19/18 12/19/18 06:00 10:50 Temperature 97.5 F L 97.9 F Pulse Rate 57 L 60 Respiratory 18 18 Rate Blood Pressure 142/84 133/87 Lab Results WBC 5.9 K/mm3 (4.0-10.0) 12/18/18 07:00 RBC 4.29 M/mm3 (4.00-5.60) 12/18/18 07:00 Hgb 12.5 GM/dL (11.7-16.9) 12/18/18 07:00 Hct 36.8 % (35.4-49) 12/18/18 07:00 MCV 85.9 fl (80-96) 12/18/18 07:00 MCHC 34.0 g/dl (32.0-35.9) 12/18/18 07:00 RDW 13.8 % (11.9-15.9) 12/18/18 07:00 Plt Count 250 K/MM3 (134-434) 12/18/18 07:00 Sodium 142 mmol/L (136-145) 12/18/18 07:00 Potassium 3.8 mmol/L (3.5-5.1) 12/18/18 07:00 Chloride 108 mmol/L (98-107) H 12/18/18 07:00 Carbon Dioxide 27 mmol/L (21-32) 12/18/18 07:00 Anion Gap 7 MMOL/L (8-16) L 12/18/18 07:00 BUN 8.2 mg/dL (7-18) 12/18/18 07:00 Creatinine 0.9 mg/dL (0.55-1.3) 12/18/18 07:00 Random Glucose 83 mg/dL (74-106) 12/18/18 07:00 Calcium 8.7 mg/dL (8.5-10.1) 12/18/18 07:00 Labs noted. Assessment: 12/19/18 11:04 AOX3, in no acute distress Full ROM, ambulating in the unit. withdrawal symptoms. Plan: continue detox. Increase fluids.
[2018-12-19] MEDS: cloNIDine HCL 0.1 MG TABLET PO PRN (12:35)
[2018-12-19] MEDS: THIAMINE HCL 100 MG TABLET (FP) PO SCH (22:04)
[2018-12-20] MEDS: diazePAM 5 MG TABLET PO PRN ×4 (04:17→17:48)
[2018-12-20] MEDS ORDERED: diazePAM 5 MG TABLET PO SCH (06:00)
[2018-12-20] MEDS ORDERED: METHADONE HCL 10 MG TABLET (FOR DETOX USE ONLY) PO ONE (10:00)
[2018-12-20] MEDS: PRENATAL VITAMINS W/ FOLIC ACID TABLET (FP) PO SCH (10:57)
--- NOTE | 2018-12-20 16:41 | PN ---
[facility] CIWA - CIWA Score Nausea/Vomitin-No Nausea/No Vomiting Muscle Tremors: None Anxiety: 3 Agitation: 3 Paroxysmal Sweats: 2 Orientation: 0-Oriented Tacttile Disturbances: 0-None Auditory Disturbances: 0-None Visual Disturbances: 0-None Headache: 0-None Present CIWA-Ar Total Score: 8 S COWS - Scale Resting Pulse: 1= [place] 81-100 Sweatin= Chills/Flushing Restless Observation: 1= Difficult to Sit Still Pupil Size: 0= Normal to Room Light Bone or Joint Aches: 1= Mild Discomfort Runny Nose/ Eye Tearin= None GI Upset > 30mins: 0= None Tremor Observation of Outstretched Hands: 0= None Yawning Observation: 0= None Anxiety or Irritability: 2=Irritable/Anxious Goose Flesh Skin: 0=Smooth Skin COWS Score: 6 S Progress Note (SOAP) Subjective: Irritable, chills, nightmare, insomnia Objective: 12/20/18 16:41 Last Vital Signs Temp Pulse Resp BP Pulse Ox 98.2 F 94 H 18 128/73 12/20/18 14:34 12/20/18 14:34 12/20/18 14:34 12/20/18 14:34 Laboratory Tests 12/18/18 12/18/18 12/18/18 07:00 07:00 07:00 WBC 5.9 RBC 4.29 Hgb 12.5 Hct 36.8 MCV 85.9 MCH 29.2 MCHC 34.0 RDW 13.8 Plt Count 250 MPV 8.1 Sodium 142 Potassium 3.8 Chloride 108 H Carbon Dioxide 27 Anion Gap 7 L BUN 8.2 Creatinine 0.9 Est GFR (CKD-EPI)AfAm 129.61 Est GFR (CKD-EPI)NonAf 111.83 Random Glucose 83 Calcium 8.7 Total Bilirubin 0.6 AST 11 L ALT 21 Alkaline Phosphatase 50 Total Protein 6.2 L Albumin 3.1 L RPR Titer Nonreactive Labs reviewed Assessment: 12/20/18 16:42 Withdrawal symptoms Plan: Continue detox Encouraged PO water intake Patient scheduled for discharge tomorrow
[2018-12-20 20:36] VITALS: PULSE 84; TEMP 98.2
--- NOTE | 2018-12-20 21:01 | DS ---
[facility] Detox Discharge Summary Admission Date: 12/17/18 Discharge Date: 12/20/18 - History Present History: Alcohol Dependence, Cannabis Dependence, Opioid Dependence, Sedative Dependence Pertinent Past History: LOW BACK PAIN GERD - Physical Exam Results Vital Signs: Vital Signs Temperature 98.2 F 12/20/18 20:35 Pulse Rate 84 12/20/18 20:35 Respiratory Rate 18 12/20/18 20:35 Blood Pressure 139/89 12/20/18 20:35 O2 Sat by Pulse Oximetry (%) Pertinent Admission Physical Exam Findings: WITHDRAWAL SX'S Laboratory Tests 12/18/18 12/18/18 12/18/18 07:00 07:00 07:00 WBC 5.9 RBC 4.29 Hgb 12.5 Hct 36.8 MCV 85.9 MCH 29.2 MCHC 34.0 RDW 13.8 Plt Count 250 MPV 8.1 Sodium 142 Potassium 3.8 Chloride 108 H Carbon Dioxide 27 Anion Gap 7 L BUN 8.2 Creatinine 0.9 Est GFR (CKD-EPI)AfAm 129.61 Est GFR (CKD-EPI)NonAf 111.83 Random Glucose 83 Calcium 8.7 Total Bilirubin 0.6 AST 11 L ALT 21 Alkaline Phosphatase 50 Total Protein 6.2 L Albumin 3.1 L RPR Titer Nonreactive - Treatment Hospital Course: Detox Protocol Followed, Discharged Condition Good - Medication Discharge Medications: Ambulatory Orders NK [No Known Home Medication] 12/17/18 - Diagnosis (1) Marijuana dependence Status: Acute (2) Nicotine dependence Status: Acute Qualifiers: Nicotine product type: cigarettes Substance use status: in withdrawal Qualified Code(s): F17.213 - Nicotine dependence, cigarettes, with withdrawal (3) Opioid dependence with withdrawal Status: Acute (4) Uncomplicated sedative, hypnotic or anxiolytic withdrawal Status: Acute (5) Alcohol dependence with uncomplicated withdrawal Status: Chronic (6) GERD (gastroesophageal reflux disease) Status: Chronic Qualifiers: Esophagitis presence: without esophagitis Qualified Code(s): K21.9 - Gastro -esophageal reflux disease without esophagitis (7) Low back pain Status: Chronic Qualifiers: Chronicity: unspecified - AMA Did Patient Leave Against Medical Advice: No
[2018-12-20 21:36] VITALS: BP 139/81
[2018-12-21] MEDS ORDERED: METHADONE HCL 5 MG TABLET (FOR DETOX USE ONLY) PO ONE (06:00)
== END 2018-12-20 21:21 | disposition home or self-care (01) | DRG 773 ==
LOC: YASAS 18:09 → Y6N 20:52
PROVIDERS: ADMIT Surgery; ATTEND Surgery
PROC: HZ2ZZZZ Detoxification Services for Substance Abuse Treatment (ICD-10-PCS; principal; 2018-12-17)
DX: F11.23 Opioid dependence with withdrawal (principal); F10.230 Alcohol dependence with withdrawal, uncomplicated; F13.230 Sedative, hypnotic or anxiolytic dependence with withdrawal, uncomplicated; F12.20 Cannabis dependence, uncomplicated; F17.213 Nicotine dependence, cigarettes, with withdrawal; K21.9 Gastro-esophageal reflux disease without esophagitis; M54.5 Low back pain; G89.29 Other chronic pain
CPT/HCPCS: 36415; 80053; 85027; 86593; J0735

== ENCOUNTER 2019-03-17 09:10 | Inpatient (IN) | payer OTHER ==
--- NOTE | 2019-03-17 09:24 | HP ---
COWS - Scale Resting Pulse: 0= [place] 80 or Below Sweatin= Chills/Flushing Restless Observation: 3= Extraneous Movement Pupil Size: 0= Normal to Room Light Bone or Joint Aches: 2= Severe Diffuse Aches Runny Nose/ Eye Tearin= Runny Nose/Eyes GI Upset > 30mins: 1= Stomach Cramp Tremor Observation: 2= Slight Tremor Visible Yawning Observation: 1= 1-2x During Session Anxiety or Irritability: 1=Feels Anxious/Irritable Goose Flesh Skin: 3=Piloerection COWS Score: 16 CIWA Score Nausea/Vomitin Muscle Tremors: 3 Anxiety: 4-Mod. Anxious/Guarded Agitation: 3 Paroxysmal Sweats: 4-Forehead w/Sweat Beads Orientation: 0-Oriented Tacttile Disturbances: 0-None Auditory Disturbances: 0-None Visual Disturbances: 0-None Headache: 3-Moderate CIWA-Ar Total Score: 19 - Admission Criteria OASAS Guidelines: Admission for Medically Managed Detox: Requires at least one of the followin. CIWA greater than 12 2. Seizures within the past 24 hours 3. Delirium tremens within the past 24 hours 4. Hallucinations within the past 24 hours 5. Acute intervention needed for co occurring medical disorder 6. Acute intervention needed for co occurring psychiatric disorder 7. Severe withdrawal that cannot be handled at a lower level of care (continued vomiting, continued diarrhea, abnormal vital signs) requiring intravenous medication and/or fluids 8. Admission ROS [facility] - [facility] Chief Complaint: "I want to get to detox." Allergies/Adverse Reactions: Allergies Allergy/AdvReac Type Severity Reaction Status Date / Time No Known Drug Allergies Allergy Verified 03/17/19 09:26 History of Present Illness: 34 year old male with history of opioid dependence and alcohol dependence with withdrawals. He is drinking 1 pint of vodka daily and 1 6 pack beer, last drank yesterday. Heroin he is using 2 bundles of heroin per day, relapsed a few months ago. He had been priorly in [facility] as an outpatient but relapsed and started using again. He does not smoke ciggarettes. He occasionally uses marijuana PMH: NOne PsurgHx: Jaw surgery broken jaw titanium plate 2011 He is domiciled. He has poor support systems. - Ebola screening Have you traveled outside of the country in the last 21 days: No Have you had contact with anyone from an Ebola affected area: No Have you been sick,other than usual withdrawal symptoms: No Do you have a fever: No - Review of Systems Constitutional: Diaphoresis EENT: reports: Blurred Vision, Nose Congestion Respiratory: reports: No Symptoms reported Cardiac: reports: No Symptoms Reported GI: reports: Nausea, Vomiting, Abdominal cramping : reports: No Symptoms Reported Musculoskeletal: reports: Muscle Pain Integumentary: reports: No Symptoms Reported Neuro: reports: Headache Endocrine: reports: No Symptoms Reported Hematology: reports: No Symptoms Reported Psychiatric: reports: Judgement Intact, Mood/Affect Appropiate, Orientated x3 Other Systems: Reviewed and Negative Patient History - Patient Medical History Hx Anemia: No Hx Asthma: No Hx Chronic Obstructive Pulmonary Disease (COPD): No Hx Cancer: No Hx Cardiac Disorders: No Hx Congestive Heart Failure: No Hx Hypertension: No Hx Hypercholesterolemia: No Hx Pacemaker: No HX Cerebrovascular Accident: No Hx Seizures: No Hx Dementia: No Hx Diabetes: No Hx Gastrointestinal Disorders: Yes (acid reflux- Not on m edication) Hx Liver Disease: No Hx Genitourinary Disorders: No Hx Sexually Transmitted Disorders: No Hx Renal Disease (ESRD): No Hx Thyroid Disease: No Hx Human Immunodeficiency Virus (HIV): No (Negative 2018) Hx Hepatitis C: No Hx Depression: Yes Hx Suicide Attempt: No Hx Bipolar Disorder: No Hx Schizophrenia: No - Patient Surgical History Past Surgical History: Yes Hx Neurologic Surgery: No Hx Cataract Extraction: No Hx Cardiac Surgery: No Hx Lung Surgery: No Hx Breast Surgery: No Hx Breast Biopsy: No Hx Abdominal Surgery: No Hx Appendectomy: No Hx Cholecystectomy: No Hx Genitourinary Surgery: No Hx Section: No Hx Orthopedic Surgery: No Other Surgical History: jaw titanium plate Anesthesia Reaction: No - PPD History Previous Implant?: Yes Documented Results: Negative w/proof Implanted On Prior R Admission?: Yes Date: 03/08/18 Results: 0 mm PPD to be Administered?: Yes - Smoking Cessation Smoking history: Never smoked Have you smoked in the past 12 months: No Aproximately how many cigarettes per day: 2 Hx Chewing Tobacco Use: No Initiated information on smoking cessation: No - Substances abused Heroin Substance route: Inhalation Frequency: Daily Amount used: 1.5 gram Age of first use: 28 Date of last use: 12/16/18 Alprazolam (Xanax) Substance route: Oral Frequency: No use in 30 days Amount used: 4mg Age of first use: 21 Date of last use: 12/16/18 Alcohol Substance route: Oral Frequency: Daily Amount used: liquor- 3 pints, beer- 1 six pack Age of first use: 17 Date of last use: 12/17/18 Admission Physical Exam [facility] Physical General Appearance: Yes: Mild Distress HEENTM: Yes: EOMI, Hearing grossly Normal, Normal ENT Inspection, Normocephalic , BUDDY, Pharynx Normal Respiratory: Yes: Chest Non-Tender, Lungs Clear, Normal Breath Sounds Neck: Yes: No masses,lesions,Nodules, Supple, Trachea in good position Breast: Yes: Within Normal Limits, Axillae without masses Cardiology: Yes: Regular Rhythm, Regular Rate, S1, S2 Abdominal: Yes: Normal Bowel Sounds, Non Tender, Soft Genitourinary: Yes: Within Normal Limits Back: Yes: Within Normal Limits Musculoskeletal: Yes: Muscle Pain Extremities: Yes: Normal Capillary Refill, Normal Inspection, Normal Range of Motion, Non-Tender Neurological: Yes: pile fabric knitter II-XII NML intact, Fully Oriented, Alert, Motor Strength 5/5, Normal Mood/Affect, Normal Response Integumentary: Yes: Normal Color, Dry, Warm Lymphatic: Yes: Within Normal Limits - Diagnostic (1) Opioid dependence with withdrawal Current Visit: Yes Status: Acute (2) Alcohol dependence with uncomplicated withdrawal Current Visit: Yes Status: Chronic Cleared for Admission [facility] - Detox or Rehab [facility] Level of Care: Medically Managed Detox Regimen/Protocol: Methadone/Valium Claeared for Rehab Admission: No Screened but not Admitted - Documentation of Visit Screened but not Admitted: No Breathalyzer - Breathalyzer Breathalyzer: 0 (last drank one day ago) Vital Signs - Vital Signs Vital signs refused: No Temperature source: Oral (97.7) Pulse Rate: 68 Respiratory Rate: 18 Blood Pressure: 131/80 BP Location: Left Arm Blood Pressure position: Sitting - Height Height: 6 ft 1 in - Weight Weight: 200 lb Weight measurement method: Standing scale - BMI Body Mass Index (BMI): 26.4 - Bowel Function Bowel Movement: No Urine Drug Screen - Test Device Lot number: [id number] Expiration date: 02/28/21 - Control Is test valid?: Yes - Results Drug screen NEGATIVE: No Urine drug screen results: THC-Marijuana, FEN-Fentanyl, MOP-Opiates, BZO- Benzodiazepines Inpatient Rehab Admission - Rehab Decision to Admit Inpatient rehab admission?: No
[2019-03-17 09:32] VITALS: BMI 26.4
[2019-03-17] MEDS ORDERED: MAGNESIUM HYDROX 2400MG/30ML ORAL SUSPENSION 30 ML CUP PO PRN (09:56)
[2019-03-17] MEDS ORDERED: MAG HYDROX/AL HYDROX/SIMETH 30 ML UNIT-DOSE CUP PO PRN (09:56)
[2019-03-17] MEDS ORDERED: MENTHOL/PHENOL 1 EACH UD MM PRN (09:56)
[2019-03-17] MEDS ORDERED: MAGNESIUM CITRATE 300 ML BOTTLE PO PRN (09:56)
[2019-03-17] MEDS ORDERED: ACETAMINOPHEN 325 MG TABLET (FP) PO PRN ×2 (09:56)
[2019-03-17] MEDS ORDERED: BISMUTH SUBSALICYLATE 262 MG/15 ML BTL PO PRN (09:56)
[2019-03-17] MEDS ORDERED: IBUPROFEN 400 MG TABLET (FP) PO PRN (09:56)
[2019-03-17] MEDS ORDERED: cloNIDine HCL 0.1 MG TABLET PO PRN (09:56)
[2019-03-17] MEDS ORDERED: METHADONE HCL 10 MG TABLET (FOR DETOX USE ONLY) PO ONE (10:40)
[2019-03-17] MEDS: PRENATAL VITAMINS W/ FOLIC ACID TABLET (FP) PO SCH (10:58)
[2019-03-17] MEDS: diazePAM 5 MG TABLET PO PRN ×3 (10:58→22:03)
[2019-03-17 12:23] LABS: HEMATOCRIT 42.5 % (35.4-49); HEMOGLOBIN 14.4 GM/dL (11.7-16.9); MCHC 33.9 g/dl (32.0-35.9); MEAN CELL VOLUME 85.6 fl (80-96); MEAN PLT VOLUME 7.9 fl (7.5-11.1); PLATELET COUNT 383 K/MM3 (134-434); RBC 4.96 M/mm3 (4.00-5.60); RDW 14.4 % (11.9-15.9)
[2019-03-17 12:35] LABS: ALBUMIN 3.8 g/dl (3.4-5.0); BILIRUBIN,TOTAL 0.4 mg/dL (0.2-1); BLOOD UREA NITROGEN 11.1 mg/dL (7-18); CALCIUM 9.6 mg/dL (8.5-10.1); CREATININE 1.1 mg/dL (0.55-1.3); POTASSIUM 4.5 mmol/L (3.5-5.1); TOT PROT 7.3 g/dl (6.4-8.2)
[2019-03-17] MEDS: diazePAM 5 MG TABLET PO SCH ×2 (14:37→22:01)
[2019-03-17] MEDS: THIAMINE HCL 100 MG TABLET (FP) PO SCH (22:03)
[2019-03-18] MEDS: diazePAM 5 MG TABLET PO PRN ×4 (03:10→21:03)
[2019-03-18] MEDS: diazePAM 5 MG TABLET PO SCH ×3 (07:05→22:08)
[2019-03-18] MEDS ORDERED: METHADONE HCL 10 MG TABLET (FOR DETOX USE ONLY) ONE (09:01)
[2019-03-18] MEDS ORDERED: METHADONE HCL 5 MG TABLET (FOR DETOX USE ONLY) ONE (09:01)
[2019-03-18] MEDS ORDERED: METHADONE (DETOX) 20 MG, METHADONE (DETOX) 5 MG PO ONE (10:00)
[2019-03-18] MEDS: PRENATAL VITAMINS W/ FOLIC ACID TABLET (FP) PO SCH (10:27)
--- NOTE | 2019-03-18 11:49 | PN ---
[facility] CIWA - CIWA Score Nausea/Vomitin-No Nausea/No Vomiting Muscle Tremors: 3 Anxiety: 3 Agitation: 3 Paroxysmal Sweats: 3 Orientation: 0-Oriented Tacttile Disturbances: 0-None Auditory Disturbances: 0-None Visual Disturbances: 0-None Headache: 0-None Present CIWA-Ar Total Score: 12 BHS COWS - Scale Resting Pulse: 0= [place] 80 or Below Sweatin= Chills/Flushing Restless Observation: 1= Difficult to Sit Still Pupil Size: 0= Normal to Room Light Bone or Joint Aches: 2= Severe Diffuse Aches Runny Nose/ Eye Tearin= Runny Nose/Eyes GI Upset > 30mins: 0= None Tremor Observation of Outstretched Hands: 2= Slight Tremor Visible Yawning Observation: 2= >3x During Session Anxiety or Irritability: 2=Irritable/Anxious Goose Flesh Skin: 0=Smooth Skin COWS Score: 12 S Progress Note (SOAP) Subjective: tired sweats mild shakes interrupted sleep body aches agitation irritable Objective: 03/18/19 11:48 Vital Signs Temperature 97.7 F 03/18/19 09:42 Pulse Rate 49 L 03/18/19 09:42 Respiratory Rate 18 03/18/19 09:42 Blood Pressure 135/83 03/18/19 09:42 O2 Sat by Pulse Oximetry (%) Laboratory Tests 03/17/19 03/17/19 03/17/19 10:05 10:05 10:05 WBC 6.0 RBC 4.96 Hgb 14.4 Hct 42.5 D MCV 85.6 MCH 29.0 MCHC 33.9 RDW 14.4 Plt Count 383 D MPV 7.9 Sodium 136 Potassium 4.5 Chloride 102 Carbon Dioxide 28 Anion Gap 6 L BUN 11.1 Creatinine 1.1 Est GFR (CKD-EPI)AfAm 100.97 Est GFR (CKD-EPI)NonAf 87.12 Random Glucose 73 L Calcium 9.6 Total Bilirubin 0.4 AST 28 ALT 59 Alkaline Phosphatase 74 Total Protein 7.3 Albumin 3.8 RPR Titer Nonreactive HIV 1&2 Antibody Screen HIV P24 Antigen 03/17/19 10:05 WBC RBC Hgb Hct MCV MCH MCHC RDW Plt Count MPV Sodium Potassium Chloride Carbon Dioxide Anion Gap BUN Creatinine Est GFR (CKD-EPI)AfAm Est GFR (CKD-EPI)NonAf Random Glucose Calcium Total Bilirubin AST ALT Alkaline Phosphatase Total Protein Albumin RPR Titer HIV 1&2 Antibody Screen Negative HIV P24 Antigen Negative labs noted aaox3 ambulating no acute distress Assessment: 03/18/19 11:48 withdrawals Plan: continue detox increase fluids
[2019-03-18] MEDS: THIAMINE HCL 100 MG TABLET (FP) PO SCH (22:08)
[2019-03-19] MEDS: diazePAM 5 MG TABLET PO PRN ×5 (04:47→22:40)
[2019-03-19] MEDS: diazePAM 5 MG TABLET PO SCH ×2 (07:37→17:23)
[2019-03-19] MEDS ORDERED: METHADONE HCL 10 MG TABLET (FOR DETOX USE ONLY) PO ONE (10:00)
[2019-03-19] MEDS: PRENATAL VITAMINS W/ FOLIC ACID TABLET (FP) PO SCH (10:30)
--- NOTE | 2019-03-19 11:09 | PN ---
[facility] CIWA - CIWA Score Nausea/Vomitin-No Nausea/No Vomiting Muscle Tremors: 3 Anxiety: 3 Agitation: 3 Paroxysmal Sweats: 2 Orientation: 0-Oriented Tacttile Disturbances: 0-None Auditory Disturbances: 0-None Visual Disturbances: 0-None Headache: 0-None Present CIWA-Ar Total Score: 11 S COWS - Scale Resting Pulse: 0= [place] 80 or Below Sweatin= Chills/Flushing Restless Observation: 0= Sits Still Pupil Size: 0= Normal to Room Light Bone or Joint Aches: 1= Mild Discomfort Runny Nose/ Eye Tearin= Nasal Congestion GI Upset > 30mins: 0= None Tremor Observation of Outstretched Hands: 1= Tremor [place], Not Seen Yawning Observation: 2= >3x During Session Anxiety or Irritability: 1=Feels Anxious/Irritable Goose Flesh Skin: 0=Smooth Skin COWS Score: 7 S Progress Note (SOAP) Subjective: sweats body aches irritable agitation interrupted sleep Objective: 03/19/19 10:45 Vital Signs Temperature 97.7 F 03/19/19 09:31 Pulse Rate 69 03/19/19 09:31 Respiratory Rate 18 03/19/19 09:31 Blood Pressure 126/70 03/19/19 09:31 O2 Sat by Pulse Oximetry (%) Laboratory Tests 03/17/19 03/17/19 03/17/19 10:05 10:05 10:05 WBC 6.0 RBC 4.96 Hgb 14.4 Hct 42.5 D MCV 85.6 MCH 29.0 MCHC 33.9 RDW 14.4 Plt Count 383 D MPV 7.9 Sodium 136 Potassium 4.5 Chloride 102 Carbon Dioxide 28 Anion Gap 6 L BUN 11.1 Creatinine 1.1 Est GFR (CKD-EPI)AfAm 100.97 Est GFR (CKD-EPI)NonAf 87.12 Random Glucose 73 L Calcium 9.6 Total Bilirubin 0.4 AST 28 ALT 59 Alkaline Phosphatase 74 Total Protein 7.3 Albumin 3.8 RPR Titer Nonreactive HIV 1&2 Antibody Screen HIV P24 Antigen 03/17/19 10:05 WBC RBC Hgb Hct MCV MCH MCHC RDW Plt Count MPV Sodium Potassium Chloride Carbon Dioxide Anion Gap BUN Creatinine Est GFR (CKD-EPI)AfAm Est GFR (CKD-EPI)NonAf Random Glucose Calcium Total Bilirubin AST ALT Alkaline Phosphatase Total Protein Albumin RPR Titer HIV 1&2 Antibody Screen Negative HIV P24 Antigen Negative labs noted aaox3 ambulating no acute distress Assessment: 03/19/19 10:45 withdrawals Plan: continue detox increase fluids
[2019-03-19] MEDS: THIAMINE HCL 100 MG TABLET (FP) PO SCH (22:40)
[2019-03-20] MEDS: MELATONIN 5 MG TABLETS PO PRN ×2 (00:10→21:56)
[2019-03-20] MEDS ORDERED: diazePAM 5 MG TABLET PO ONE (06:00)
[2019-03-20] MEDS ORDERED: METHADONE HCL 10 MG TABLET (FOR DETOX USE ONLY) ONE (09:05)
[2019-03-20] MEDS ORDERED: METHADONE HCL 5 MG TABLET (FOR DETOX USE ONLY) ONE (09:06)
[2019-03-20] MEDS ORDERED: METHADONE (DETOX) 10 MG, METHADONE (DETOX) 5 MG PO ONE (10:00)
[2019-03-20] MEDS: PRENATAL VITAMINS W/ FOLIC ACID TABLET (FP) PO SCH (10:35)
--- NOTE | 2019-03-20 13:09 | PN ---
[facility] CIWA - CIWA Score Nausea/Vomitin-No Nausea/No Vomiting Muscle Tremors: None Anxiety: 3 Agitation: 0-Normal Activity Paroxysmal Sweats: 3 Orientation: 0-Oriented Tacttile Disturbances: 0-None Auditory Disturbances: 0-None Visual Disturbances: 0-None Headache: 2-Mild CIWA-Ar Total Score: 8 S COWS - Scale Resting Pulse: 0= [place] 80 or Below Sweatin= Beads of Sweat on Face Restless Observation: 1= Difficult to Sit Still Pupil Size: 0= Normal to Room Light Bone or Joint Aches: 1= Mild Discomfort Runny Nose/ Eye Tearin= None GI Upset > 30mins: 0= None Tremor Observation of Outstretched Hands: 0= None Yawning Observation: 1= 1-2x During Session Anxiety or Irritability: 2=Irritable/Anxious Goose Flesh Skin: 0=Smooth Skin COWS Score: 8 [facility] Progress Note (SOAP) Subjective: c/o anxiety, irritability, sweats, headache, and muscle aches. Objective: 03/20/19 13:08 Vital Signs 03/20/19 03/20/19 07:46 09:47 Temperature 97.7 F 97.3 F L Pulse Rate 56 L 61 Respiratory 18 16 Rate Blood Pressure 112/63 115/71 Lab Results WBC 6.0 K/mm3 (4.0-10.0) 03/17/19 10:05 RBC 4.96 M/mm3 (4.00-5.60) 03/17/19 10:05 Hgb 14.4 GM/dL (11.7-16.9) 03/17/19 10:05 Hct 42.5 % (35.4-49) D 03/17/19 10:05 MCV 85.6 fl (80-96) 03/17/19 10:05 MCHC 33.9 g/dl (32.0-35.9) 03/17/19 10:05 RDW 14.4 % (11.9-15.9) 03/17/19 10:05 Plt Count 383 K/MM3 (134-434) D 03/17/19 10:05 Sodium 136 mmol/L (136-145) 03/17/19 10:05 Potassium 4.5 mmol/L (3.5-5.1) 03/17/19 10:05 Chloride 102 mmol/L (98-107) 03/17/19 10:05 Carbon Dioxide 28 mmol/L (21-32) 03/17/19 10:05 Anion Gap 6 MMOL/L (8-16) L 03/17/19 10:05 BUN 11.1 mg/dL (7-18) 03/17/19 10:05 Creatinine 1.1 mg/dL (0.55-1.3) 03/17/19 10:05 Random Glucose 73 mg/dL (74-106) L 03/17/19 10:05 Calcium 9.6 mg/dL (8.5-10.1) 03/17/19 10:05 Labs noted. Assessment: 03/20/19 13:08 Pt is alert and oriented x3 and in no acute respiratory distress. Full ROM, ambulating in the unit. Withdrawal symptoms. Plan: continue detox.
[2019-03-20] MEDS: METHOCARBAMOL 500 MG TABLET PO PRN (20:39)
[2019-03-20] MEDS: hydrOXYzine PAMOATE 25 MG CAPSULE (FP) PO PRN (20:39)
[2019-03-20] MEDS: THIAMINE HCL 100 MG TABLET (FP) PO SCH (21:55)
[2019-03-21] MEDS ORDERED: METHADONE HCL 10 MG TABLET (FOR DETOX USE ONLY) PO ONE (10:00)
[2019-03-21] MEDS: PRENATAL VITAMINS W/ FOLIC ACID TABLET (FP) PO SCH (10:47)
--- NOTE | 2019-03-21 17:37 | PN ---
S CIWA - CIWA Score Nausea/Vomitin-No Nausea/No Vomiting Muscle Tremors: 2 Anxiety: 1-Mildly Anxious Agitation: 2 Paroxysmal Sweats: 1-Minimal [place] Moist Orientation: 0-Oriented Tacttile Disturbances: 0-None Auditory Disturbances: 0-None Visual Disturbances: 0-None Headache: 0-None Present CIWA-Ar Total Score: 6 BHS COWS - Scale Resting Pulse: 1= [place] 81-100 Sweatin= Chills/Flushing Restless Observation: 1= Difficult to Sit Still Pupil Size: 0= Normal to Room Light Bone or Joint Aches: 1= Mild Discomfort Runny Nose/ Eye Tearin= None GI Upset > 30mins: 0= None Tremor Observation of Outstretched Hands: 1= Tremor [place], Not Seen Yawning Observation: 0= None Anxiety or Irritability: 1=Feels Anxious/Irritable Goose Flesh Skin: 0=Smooth Skin COWS Score: 6 S Progress Note (SOAP) Subjective: Medication controls symptoms Objective: 03/21/19 17:36 Last Vital Signs Temp Pulse Resp BP Pulse Ox 98.2 F 88 18 117/82 03/21/19 17:13 03/21/19 17:13 03/21/19 17:13 03/21/19 17:13 Laboratory Tests 03/17/19 03/17/19 03/17/19 10:05 10:05 10:05 WBC 6.0 RBC 4.96 Hgb 14.4 Hct 42.5 D MCV 85.6 MCH 29.0 MCHC 33.9 RDW 14.4 Plt Count 383 D MPV 7.9 Sodium 136 Potassium 4.5 Chloride 102 Carbon Dioxide 28 Anion Gap 6 L BUN 11.1 Creatinine 1.1 Est GFR (CKD-EPI)AfAm 100.97 Est GFR (CKD-EPI)NonAf 87.12 Random Glucose 73 L Calcium 9.6 Total Bilirubin 0.4 AST 28 ALT 59 Alkaline Phosphatase 74 Total Protein 7.3 Albumin 3.8 RPR Titer Nonreactive HIV 1&2 Antibody Screen HIV P24 Antigen 03/17/19 10:05 WBC RBC Hgb Hct MCV MCH MCHC RDW Plt Count MPV Sodium Potassium Chloride Carbon Dioxide Anion Gap BUN Creatinine Est GFR (CKD-EPI)AfAm Est GFR (CKD-EPI)NonAf Random Glucose Calcium Total Bilirubin AST ALT Alkaline Phosphatase Total Protein Albumin RPR Titer HIV 1&2 Antibody Screen Negative HIV P24 Antigen Negative Labs reviewed Assessment: 03/21/19 17:36 Withdrawal sxs Plan: Continue detox Encouraged PO water intake
[2019-03-21] MEDS: MELATONIN 5 MG TABLETS PO PRN (22:04)
[2019-03-21] MEDS: hydrOXYzine PAMOATE 25 MG CAPSULE (FP) PO PRN (22:04)
[2019-03-21] MEDS: THIAMINE HCL 100 MG TABLET (FP) PO SCH (22:04)
[2019-03-21] MEDS: METHOCARBAMOL 500 MG TABLET PO PRN (22:04)
[2019-03-22] MEDS ORDERED: METHADONE HCL 5 MG TABLET (FOR DETOX USE ONLY) PO ONE (06:00)
--- NOTE | 2019-03-22 08:37 | DS ---
[facility] Detox Discharge Summary Admission Date: 03/17/19 Discharge Date: 03/22/19 - History Present History: Alcohol Dependence, Cannabis Dependence, Cocaine Dependence, Opioid Dependence - Physical Exam Results Vital Signs: Vital Signs Temperature 97.7 F 03/22/19 08:18 Pulse Rate 60 03/22/19 08:18 Respiratory Rate 18 03/22/19 08:18 Blood Pressure 116/61 03/22/19 08:18 O2 Sat by Pulse Oximetry (%) Pertinent Admission Physical Exam Findings: pt arrived in withdrawal Laboratory Tests 03/17/19 03/17/19 03/17/19 10:05 10:05 10:05 WBC 6.0 RBC 4.96 Hgb 14.4 Hct 42.5 D MCV 85.6 MCH 29.0 MCHC 33.9 RDW 14.4 Plt Count 383 D MPV 7.9 Sodium 136 Potassium 4.5 Chloride 102 Carbon Dioxide 28 Anion Gap 6 L BUN 11.1 Creatinine 1.1 Est GFR (CKD-EPI)AfAm 100.97 Est GFR (CKD-EPI)NonAf 87.12 Random Glucose 73 L Calcium 9.6 Total Bilirubin 0.4 AST 28 ALT 59 Alkaline Phosphatase 74 Total Protein 7.3 Albumin 3.8 RPR Titer Nonreactive HIV 1&2 Antibody Screen HIV P24 Antigen 03/17/19 10:05 WBC RBC Hgb Hct MCV MCH MCHC RDW Plt Count MPV Sodium Potassium Chloride Carbon Dioxide Anion Gap BUN Creatinine Est GFR (CKD-EPI)AfAm Est GFR (CKD-EPI)NonAf Random Glucose Calcium Total Bilirubin AST ALT Alkaline Phosphatase Total Protein Albumin RPR Titer HIV 1&2 Antibody Screen Negative HIV P24 Antigen Negative today pt is aaox3 ambulating no acute distress - Treatment Hospital Course: Detox Protocol Followed, Detoxed Safely, Responded well, Discharged Condition Good, Rehab Referral Accepted Patient has Accepted a Rehab Referral to: pt referred to [facility] inpatient rehab - Medication Discharge Medications: Ambulatory Orders NK [No Known Home Medication] 12/17/18 - Diagnosis (1) Opioid dependence with withdrawal Current Visit: Yes Status: Chronic (2) Alcohol dependence with uncomplicated withdrawal Current Visit: Yes Status: Chronic (3) Marijuana dependence Current Visit: No Status: Acute (4) Nicotine dependence Current Visit: Yes Status: Chronic Qualifiers: Nicotine product type: cigarettes Substance use status: uncomplicated Qualified Code(s): F17.210 - Nicotine dependence, cigarettes, uncomplicated (5) Substance-induced sleep disorder Current Visit: No Status: Acute (6) Uncomplicated sedative, hypnotic or anxiolytic withdrawal Current Visit: Yes Status: Chronic (7) Cocaine dependence, uncomplicated Current Visit: Yes Status: Chronic (8) Depression Current Visit: No Status: Chronic Qualifiers: Depression Type: unspecified Qualified Code(s): F32.9 - Major depressive disorder, single episode, unspecified (9) GERD (gastroesophageal reflux disease) Current Visit: Yes Status: Chronic Qualifiers: Esophagitis presence: without esophagitis Qualified Code(s): K21.9 - Gastro -esophageal reflux disease without esophagitis (10) Low back pain Current Visit: No Status: Chronic Qualifiers: Chronicity: unspecified (11) Depressed affect Current Visit: No Status: Suspected (12) Substance induced mood disorder Current Visit: No Status: Suspected - AMA Did Patient Leave Against Medical Advice: No
[2019-03-22 09:09] VITALS: BP 141/81; PULSE 70; TEMP 97.3
[2019-03-22] MEDS: PRENATAL VITAMINS W/ FOLIC ACID TABLET (FP) PO SCH (10:18)
== END 2019-03-22 10:55 | disposition home or self-care (01) | DRG 773 ==
LOC: YASAS 09:10 → Y6N 10:13
PROVIDERS: ADMIT Surgery; ATTEND Surgery
PROC: HZ2ZZZZ Detoxification Services for Substance Abuse Treatment (ICD-10-PCS; principal; 2019-03-17)
DX: F11.23 Opioid dependence with withdrawal (principal); F10.230 Alcohol dependence with withdrawal, uncomplicated; F13.230 Sedative, hypnotic or anxiolytic dependence with withdrawal, uncomplicated; F12.20 Cannabis dependence, uncomplicated; F17.210 Nicotine dependence, cigarettes, uncomplicated; F19.24 Other psychoactive substance dependence with psychoactive substance-induced mood disorder; F19.282 Other psychoactive substance dependence with psychoactive substance-induced sleep disorder; F32.9 Major depressive disorder, single episode, unspecified; K21.9 Gastro-esophageal reflux disease without esophagitis; M54.5 Low back pain; G89.29 Other chronic pain
CPT/HCPCS: 36415; 80053; 85027; 86593; 87389

== ENCOUNTER 2020-04-08 07:24 | Emergency (ER) | payer OTHER ==
[2020-04-08 07:53] VITALS: BP 127/86; PULSE 90; TEMP 98; BMI 29.7
--- OUTSIDE RECORDS SUMMARY | 2020-04-08 07:56 | XMS ---
:1985 Demographics Address [address] [place] [address] Email Address N Preferred Language Uzbek Marital Status Not or Religion Affiliation [place] Race [employer] Not or Author Organization [facility] Care Team Providers Name Role Phone ED STAFF PHYSICIAN Unavailable Unavailable ED STAFF PHYSICIAN, STAFF Unavailable Unavailable ZUNASSIGNED Unavailable Unavailable ED STAFF PHYSICIANDIEGO Unavailable Unavailable Re-disclosure Warning The records that you are about to access may contain information from federally- assisted alcohol or drug abuse programs. If such information is present, then the following federally mandated warning applies: This information has been disclosed to you from records protected by federal confidentiality rules (42 CFR part 2). The federal rules prohibit you from making any further disclosure of this information unless further disclosure is expressly permitted by the written consent of the person to whom it pertains or as otherwise permitted by 42 CFR part 2. A general authorization for the release of medical or other information is NOT sufficient for this purpose. The Federal rules restrict any use of the information to criminally investigate or prosecute any alcohol or drug abuse patient.The records that you are about to access may contain highly sensitive health information, the redisclosure of which is protected by Article 27-F of the [place] Public Health law. If you continue you may haveaccess to information: Regarding HIV / AIDS; Provided by facilities licensed or operated by the [facility] Office of Mental Health; or Provided by the [facility] Office for People With Developmental Disabilities. If such information is present, then the following [facility] mandated warning applies: This information has been disclosed to you from confidential records which are protected by state law. State law prohibits you from making any further disclosure of this information without the specific written consent of the person to whom it pertains, or as otherwise permitted by law. Any unauthorized further disclosure in violation of state law may result in a fine or chcf sentence or both. A general authorization for the release of medical or other information is NOT sufficient authorization for further disclosure. Encounters Encounter Providers Location Date Indications Data Source(s ) Emergency Attender: ED STAFF H 04/08/2020 [facility] PHYSICIANAttender: 04:26:00 AM [facility] STAFF ED STAFF EDT - PHYSICIANAdmitter: ED 04/08/2020 STAFF 05:19:00 AM PHYSICIANReferrer: EDT ZUNASSIGNED Patient discharged. Emergency Attender: [facility] ED STAFF H 03/03/2019 02:13:00 PM [facility] PHYSICIANAdmitter: DIEGO ED EDT - [facility] STAFF PHYSICIAN 08:24:00 PM EDT Patient discharged. Insurance Providers Payer name Policy type Policy ID Covered Covered republican's Policy P vanda / Coverage republican ID relationship to [employer] Inf ormation type jurado [employer] [id number] SP [id number] G HMO [place]IARA O [id number] 01 [id number] [employer] W [id number] MEDICAID [id number] SP [id number] Problems, Conditions, and Diagnoses Code Display Name Description Problem Type Effective Dates Data Source(s) Y99.9 Unspecified UNSPECIFIED Diagnosis 03/03/2019 [facility] external cause EXTERNAL CAUSE 02:13:00 PM EDT [facility] status STATUS Y92.[address] AND Diagnosis 03/03/2019 [facility] [address] 02:13:00 PM EDT [facility] as [facility] of occurrence of the external cause Y93.89 Activity, other ACTIVITY, OTHER Diagnosis 03/03/2019 [facility] specified SPECIFIED 02:13:00 PM EDT Medical C enter X58.XXXA Exposure to other EXPOSURE TO OTHER Diagnosis 03/03/2019 [facility] specified SPECIFIED 02:13:00 PM EDT Medical C enter factors, initial FACTORS, INITIAL encounter ENCOUNTER T40.1X1A Poisoning by POISONING BY Diagnosis 03/03/2019 [facility] heroin, HEROIN, 02:13:00 PM EDT Medical C enter accidental ACCIDENTAL (unintentional), (UNINTENTIONAL), initial encounter INIT ENCNTR Social History Code Duration Value Status Description Data Source(s ) Smoking 04/08/2020 04:58:00 AM Not Known completed Not Known Sa [facility] EDT Center Smoking 04/08/2020 04:38:00 AM Not Known completed Not Known Sa [facility] EDT Center Smoking 03/03/2019 05:00:00 PM Not Known completed Not Known Sa [facility] EDT Center Smoking 03/03/2019 02:30:00 PM Not Known completed Not Known Sa [facility] EDT Center Smoking 03/03/2019 02:25:00 PM Not Known completed Not Known [facility] EDT Center Vital Signs ID Date Data Source UNK Name Value Range Interpretation Code Description Data Source(s) Body temperature 36.734193 [id number] [facility] Respiratory rate 19 /min 19 /min [facility] Oxygen saturation 96 % 96 % [facility] blood [facility] by Pulse oximetry Heart rate 74 /min 74 /min [facility] Diastolic blood 67 mm[Hg] 67 mm[Hg] [facility] pressure [facility] [place] Systolic blood 132 mm[Hg] 132 mm[Hg] [facility] Body temperature 36.101822 [id number] [facility] Respiratory rate 19 /min 19 /min [facility] Oxygen saturation 95 % 95 % [facility] blood [facility] by Pulse oximetry Heart rate 77 /min 77 /min [facility] Diastolic blood 100 mm[Hg] 100 mm[Hg] [facility] [place] Systolic blood 139 mm[Hg] 139 mm[Hg] [facility]
[2020-04-08] MEDS ORDERED: ACETAMINOPHEN 325 MG TABLET (FP) PO ONE (08:03)
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
[2020-04-08] MEDS ORDERED: ACETAMINOPHEN 325 MG TABLET (FP) ONE (08:26)
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
== END 2020-04-08 11:06 | disposition home or self-care (01) ==
LOC: JER 07:24
DX: S60.122A Contusion of left index finger with damage to nail, initial encounter (principal)
CPT/HCPCS: 73130-TC-RT-FY; 99284-25

== ENCOUNTER 2021-07-21 10:00 | Inpatient (IN) | payer OTHER ==
[2021-07-21] MEDS ORDERED: BUPRENORPHINE/NALOXONE 4 MG/1 MG FILM PACKET SL ONE ×2 (10:31→17:00)
[2021-07-21] MEDS ORDERED: ACETAMINOPHEN 325 MG TABLET (FP) PO PRN ×2 (11:38)
[2021-07-21] MEDS ORDERED: ONDANSETRON *ODT* 4 MG TABLET SL PRN (11:38)
[2021-07-21] MEDS ORDERED: BISMUTH SUBSALICYLATE 524 MG/30 ML PO PRN (11:38)
[2021-07-21] MEDS ORDERED: MAG HYDROX/AL HYDROX/SIMETH 30 ML UNIT-DOSE CUP PO PRN (11:38)
[2021-07-21] MEDS ORDERED: MAGNESIUM HYDROX 2400MG/30ML ORAL SUSPENSION 30 ML CUP PO PRN (11:38)
[2021-07-21] MEDS ORDERED: METHOCARBAMOL 500 MG TABLET PO PRN (11:38)
[2021-07-21] MEDS ORDERED: MAGNESIUM CITRATE 300 ML BOTTLE PO PRN (11:38)
[2021-07-21] MEDS ORDERED: IBUPROFEN 400 MG TABLET (FP) PO PRN (11:38)
[2021-07-21] MEDS ORDERED: MENTHOL/PHENOL 1 EACH UD MM PRN (11:38)
[2021-07-21] MEDS ORDERED: NICOTINE 10 MG CARTRIDGE (INHALER) IH PRN (11:38)
[2021-07-21] MEDS ORDERED: cloNIDine HCL 0.1 MG TABLET PO PRN (11:40)
[2021-07-21 12:30] VITALS: BMI 20.7
[2021-07-21] MEDS ORDERED: hydrOXYzine PAMOATE 25 MG CAPSULE (FP) PO ONE (16:49)
[2021-07-21] MEDS ORDERED: MAG HYDROX/AL HYDROX/SIMETH 30 ML UNIT-DOSE CUP ONE (16:49)
[2021-07-21] MEDS: hydrOXYzine PAMOATE 25 MG CAPSULE (FP) PO SCH ×3 (16:57→23:55)
[2021-07-21] MEDS ORDERED: BUPRENORPHINE/NALOXONE 4 MG/1 MG FILM PACKET ONE (17:38)
[2021-07-21] MEDS ORDERED: THIAMINE HCL 100 MG TABLET (FP) PO SCH (22:00)
[2021-07-21] MEDS ORDERED: MELATONIN 5 MG TABLETS PO SCH (22:00)
[2021-07-22] MEDS: hydrOXYzine PAMOATE 25 MG CAPSULE (FP) PO SCH ×2 (07:24→10:04)
[2021-07-22 09:36] VITALS: BP 131/69; PULSE 86; TEMP 97.5
[2021-07-22] MEDS ORDERED: BUPRENORPHINE/NALOXONE 8 MG/2 MG FILM PACKET SL ONE (10:00)
[2021-07-22] MEDS ORDERED: PRENATAL VITAMINS W/ FOLIC ACID TABLET (FP) PO SCH (10:00)
[2021-07-22 12:02] LABS: HEMATOCRIT 37.7 % (35.4-49); HEMOGLOBIN 12.9 GM/dL (11.7-16.9); MCH 30.4 pg (25.7-33.7); MCHC 34.3 g/dl (32.0-35.9); MEAN CELL VOLUME 88.6 fl (80-96); MEAN PLT VOLUME 8.6 fl (7.5-11.1); PLATELET COUNT 282 10^3/uL (134-434); RBC 4.26 M/mm3 (4.00-5.60); RDW 13.8 % (11.9-15.9); WHITE BLOOD COUNT 7.6 K/mm3 (4.0-10.0)
[2021-07-22 12:16] LABS: ALBUMIN 3.5 g/dl (3.4-5.0); BLOOD UREA NITROGEN 11.4 mg/dL (7-18)
[2021-07-22 12:19] LABS: CREATININE 0.9 mg/dL (0.55-1.3)
[2021-07-22 12:20] LABS: BILIRUBIN,TOTAL 0.7 mg/dL (0.2-1)
== END 2021-07-22 10:27 | disposition short-term general hospital (02) | DRG 773 ==
LOC: YASAS 10:00 → UNDOADMIN 20:05 → Y3N 20:05 → UNDODISIN 07-22 10:27
PROVIDERS: ADMIT Allergy & Immunology; ATTEND Allergy & Immunology
PROC: HZ2ZZZZ Detoxification Services for Substance Abuse Treatment (ICD-10-PCS; principal; 2021-07-21)
DX: F11.23 Opioid dependence with withdrawal (principal); F15.20 Other stimulant dependence, uncomplicated; F19.24 Other psychoactive substance dependence with psychoactive substance-induced mood disorder; K21.9 Gastro-esophageal reflux disease without esophagitis; M54.50 Low back pain, unspecified; R45.851 Suicidal ideations; R44.0 Auditory hallucinations; R74.01 Elevation of levels of liver transaminase levels; Z91.51 Personal history of suicidal behavior
CPT/HCPCS: 36415; 80053; 85027; 86780; C9803; J0735; U0003; U0005